=== PATIENT | female | born 1930 | race Caucasian/White ===

== ENCOUNTER 2016-06-11 16:02 | Inpatient (IN) | payer BC, OTHER ==
[2016-06-11 16:20] VITALS: BMI 20.7
--- NOTE | 2016-06-11 16:39 | PDOC ---
History of Present Illness - General History Source: Patient Exam Limitations: No Limitations - History of Present Illness Initial Comments: 06/11/16 17:37 The patient is an 85-year-old female living on her own, with a significant past medical history of sleep apnea, hyperglycemia, and glaucoma, who presents to the ED via EMS s/p fall today. Patient had called her close friend last night asking for prayers since she was feeling feverish and chills. Pts friend decided to visit the patient today at 2:30PM. As the pt was getting up to open the door she states that she felt a little dizzy and her legs felt heavy. She fell against her bookshelf but she denies any head trauma or loss of consciousness. Pts friend was talking to her through the door and the pt was able to unlock the door but the door chain was on. Pts friend had to call EMS to have the door chain cut and to be able to transport the patient to the ED for further evaluation. Upon arrival to the ED, the patients temp. was measured to be 102.4 degrees. Patient also reports that she is experiencing a flare up of cellulitis of her right leg. She did experience a similar episode with her left leg about a year ago that is now improved. She denies any cough, nausea, vomiting, diarrhea, abdominal pain, shortness of breath, or chest pain. Allergies: sulfa, soy, wheat, dairy products Social Hx: The patient denies any tobacco, alcohol, or drug use. PCP: Dr. Ernandez <Radha Kirk - Last Filed: 06/11/16 20:03> - General History Source: Patient Exam Limitations: No Limitations <Leah Stokes - Last Filed: 06/11/16 21:42> - General Chief Complaint: Injury Stated Complaint: FALL Time Seen by Provider: 06/11/16 16:30 Past History <Radha Kirk - Last Filed: 06/11/16 20:03> - Past Medical History Other medical history: hypoglycemia - Psycho/Social/Smoking Cessation Hx Suicidal Ideation: No Smoking History: Never smoked <Leah Stokes - Last Filed: 06/11/16 21:42> - Past Medical History Allergies/Adverse Reactions: Allergies Allergy/AdvReac Type Severity Reaction Status Date / Time Sulfa (Sulfonamide Allergy Intermediate Rash Verified 06/11/16 16:16 Antibiotics) soy AdvReac Verified 06/11/16 16:16 wheat AdvReac Verified 06/11/16 16:16 sulfa AdvReac Intermediate Uncoded 06/11/16 16:16 wheat AdvReac Mild Uncoded 06/11/16 16:16 dairy products AdvReac Uncoded 06/11/16 16:16 soy AdvReac Uncoded 06/11/16 16:16 Home Medications: Ambulatory Orders Bimatoprost [Lumigan] 1 drop IO DAILY 06/11/16 Review of Systems - Review of Systems Able to Perform ROS?: Yes Comments:: 06/11/16 17:37 GENERAL/CONSTITUTIONAL: No: weakness, loss of appetite. Yes: Fever, chills HEAD, EYES, EARS, NOSE AND THROAT: No: change in vision, ear pain, discharge, sore throat, throat swelling. CARDIOVASCULAR: No: chest pain, lightheadedness, palpitations, syncope RESPIRATORY: No: cough, shortness of breath, wheezing, hemoptysis, stridor. GASTROINTESTINAL: No: nausea, vomiting, abdominal cramping, diarrhea, rectal bleeding, constipation. GENITOURINARY: No: dysuria, hematuria, frequency, urgency, flank pain. MUSCULOSKELETAL: No: back pain, neck pain, joint pain, muscle swelling or pain. (+)Lower extremity heaviness SKIN AND BREASTS: No: pallor or easy bruising. Yes: cellulitis of right lower extremity NEUROLOGIC: No: headache, vertigo, paresthesias. Yes: dizziness ENDOCRINE: No: unexplained weight gain or loss HEMATOLOGIC/LYMPHATIC: No: anemia, easy bleeding, swelling nodes <Radha Kirk - Last Filed: 06/11/16 20:03> *Physical Exam - Vital Signs Last Vital Signs Temp Pulse Resp BP Pulse Ox 102.6 F H 89 18 102/44 92 L 06/11/16 16:17 06/11/16 16:17 06/11/16 16:17 06/11/16 16:17 06/11/16 16:17 - Physical Exam Comments: 06/11/16 17:39 GENERAL: The patient is in no acute distress. ANO x3 HEAD: Normal with no signs of trauma. EYES: PERRLA, EOMI, sclera anicteric, conjunctiva clear. ENT: Ears normal, nares patent, oropharynx clear without exudates. Moist mucous membranes. NECK: Normal range of motion, supple without lymphadenopathy, JVD, or masses. LUNGS: Breath sounds equal, clear to auscultation bilaterally. No wheezes, and no crackles. HEART:Regular rate and rhythm, normal S1 and S2 without murmur, rub or gallop. ABDOMEN: Soft, nontender, normoactive bowel sounds. No guarding, no rebound. EXTREMITIES: Normal range of motion, no edema. No clubbing or cyanosis. (+) Erythema, warmth and tenderness of the right lower extremity. NEUROLOGICAL: Cranial nerves II through XII grossly intact. Normal speech. No focal neurological deficits. MUSCULOSKELETAL: Back non-tender to palpation, no CVA tenderness SKIN: Warm, Dry, normal turgor. <Radha Kirk - Last Filed: 06/11/16 20:03> - Vital Signs Last Vital Signs Temp Pulse Resp BP Pulse Ox 102.6 F H 89 18 102/44 92 L 06/11/16 16:17 06/11/16 16:17 06/11/16 16:17 06/11/16 16:17 06/11/16 16:17 <Leah Stokes - Last Filed: 06/11/16 21:42> Heart Score/ECG Review #1 ECG reviewed & interpreted by me at: 21:42 General ECG Interpretation: Sinus Rhythm, Normal Rate, Normal Intervals, No acute ischemic changes <Leah Stokes - Last Filed: 06/11/16 21:42> ED Treatment Course - LABORATORY CBC & Chemistry Diagram: 06/11/16 17:12 06/11/16 17:12 - Medications Given in the ED: ED Medications Discontinued Medications Generic Name Dose Route Start Last Admin Trade Name Freq PRN Reason Stop Dose Admin Acetaminophen 975 mg 06/11/16 16:40 06/11/16 17:06 Tylenol - PO 06/11/16 16:41 975 mg ONCE ONE Administration <Radha Kirk - Last Filed: 06/11/16 20:03> - LABORATORY CBC & Chemistry Diagram: 06/11/16 17:12 06/11/16 17:12 <Leah Stokes - Last Filed: 06/11/16 21:42> Medical Decision Making - Medical Decision Making 06/11/16 20:03 Dr. Kaiser was paged and notified via phone service. <Radha Kirk - Last Filed: 06/11/16 20:03> - Medical Decision Making 06/11/16 16:39 I, Dr. Leah Stokes, attest that this document has been prepared under my direction and personally reviewed by me in its entirety. I further attest, that it accurately reflects all work, treatment, procedures and medical decision -making performed by me. 06/11/16 16:55 This is an 85 yo F with a history of lower extremity wound presenting to the ER s/p fall Briefly, the patient lives alone and was home all day, did not get out of bed Pt states this is because she was so fatigued and her leg felt heavy she called a friend to ask for prayer when that friend came to her house, the patient attempted to open the door When she walked to the door, she fell down prior to opening it She was too weak to get to the door Pt states she did not hit her head, no loc On examination Selected Entries 06/11/16 16:17 Temperature 102.6 F H Pulse Rate 89 Respiratory 18 Rate Blood Pressure 102/44 O2 Sat by Pulse 92 L Oximetry (%) RRR CTA but decreased breath sounds no abd tenderness to palpation RLE erythematous, warm, tender to palpation Achilles area no wound noted 06/11/16 17:22 06/11/16 18:11 Laboratory Tests 06/11/16 06/11/16 17:12 17:40 WBC 13.4 H Hgb 11.7 Hct 34.8 Plt Count 205 VBG pH 7.42 H POC VBG pCO2 39.9 L POC VBG pO2 31.1 06/11/16 18:24 Laboratory Tests 06/11/16 17:12 Sodium 136 Potassium 3.9 Chloride 100 Carbon Dioxide 25 Anion Gap 11 BUN 17 Creatinine 1.0 Random Glucose 121 H Creatine Kinase 527 H Troponin I 0.05 06/11/16 19:[address] brizuela Will admit to Med surg Will add on CRP, ESR Awaiting Head CT STILL Call placed to Radiology, they can take patient now 06/11/16 19:54 clinical impression: cellulitis, fever, sepsis 06/11/16 21:[address]: IMAGES: 66 EXAM DATE AND TIME: 2016-06-11 21:10:57.0 REASON FOR EXAM: Fall COMPARISON: None. FINDINGS: There is no intra or extra-axial hemorrhage or collection. No mass lesion or midline shift. There is mild cortical atrophy. The ventricles are not enlarged Normal piper-white matter differentiation. Low attenuation in the periventricular white matter compatible with chronic microvascular ischemic changes. The calvarium is intact. The visualized paranasal sinuses and mastoid air cells are clear. THIS DOCUMENT HAS BEEN ELECTRONICALLY SIGNED Dixon Fenton MD <Leah Stokes - Last Filed: 06/11/16 21:42> *DC/Admit/Observation/Transfer - Attestations Scribe Attestion: 06/11/16 17:4 Documentation prepared by Radha Kirk, acting as medical typist for Leah Stokes MD. <Radha Kirk - Last Filed: 06/11/16 20:03> - Discharge Dispostion Admit: Yes <Leah Stokes - Last Filed: 06/11/16 21:42> Diagnosis at time of Disposition: Cellulitis of leg without foot, right - Discharge Dispostion Condition at time of disposition: Stable - Referrals
[2016-06-11] MEDS ORDERED: ACETAMINOPHEN 325 MG TABLET (FP) PO ONE (16:40)
[2016-06-11] MEDS ORDERED: SODIUM CHLORIDE 1,000 ML IV STA (16:51)
[2016-06-11] MEDS ORDERED: VANCOMYCIN 1,000 MG in DEXTROSE 5%-WATER - 250 ML IVPB ONE (16:55)
[2016-06-11] MEDS ORDERED: ACETAMINOPHEN 325 MG TABLET (FP) ONE (17:00)
[2016-06-11] MEDS ORDERED: VANCOMYCIN 1 GRAM (PRE-DOCKED) 250 ML IVPB ONE (17:01)
[2016-06-11 17:44] LABS: VENOUS BLOOD GAS HCO3 25.3 meq/L (22-29); VENOUS PH 7.42 (7.31-7.41)
[2016-06-11 17:45] LABS: MCH 30.9 pg (25.7-33.7); MCHC 33.5 g/dl (32.0-36.0); MEAN CELL VOLUME 92.4 fl (80-96); PLATELET COUNT 205 K/MM3 (134-434); RDW 13.5 % (11.6-15.6); WHITE BLOOD COUNT 13.4 K/mm3 (4.0-10.0)
[2016-06-11 17:56] LABS: INR 1.36 (0.82-1.09)
[2016-06-11 17:59] LABS: ACTIVATED PTT 34.5 SECONDS (26.9-34.4)
[2016-06-11 18:12] LABS: ALBUMIN 3.2 g/dl (3.4-5.0); BILIRUBIN,TOTAL 0.3 mg/dL (0.2-1.0); CALCIUM 8.4 mg/dL (8.5-10.1); TOT PROT 6.5 g/dl (6.4-8.2)
[2016-06-11 18:15] LABS: TROPONIN I 0.05 ng/ml (0.00-0.05)
[2016-06-11 18:17] LABS: PLATELET ESTIMATE DECREASED (NORMAL)
[2016-06-11 19:37] LABS: URINE APPEARANCE CLEAR; URINE BILIRUBIN NEGATIVE (NEGATIVE); URINE BLOOD NEGATIVE (NEGATIVE); URINE COLOR YELLOW; URINE GLUCOSE (UA) NEGATIVE (NEGATIVE); URINE KETONE TRACE (NEGATIVE); URINE LEUK ESTERASE NEGATIVE (NEGATIVE); URINE NITRITE NEGATIVE (NEGATIVE); URINE UROBILINOGEN NEGATIVE E.U./dl (0.2-1.0)
[2016-06-11 19:39] LABS: URINE PROTEIN 2+ (NEGATIVE)
[2016-06-11 19:41] LABS: URINE HYALINE CAST 1 /lpf; URINE MUCUS RARE; URINE RBC 9 /hpf (0-3); URINE WBC 4 /hpf (3-5)
[2016-06-11] MEDS ORDERED: ONDANSETRON 4 MG/2 ML VIAL IVPB PRN (20:13)
[2016-06-11] MEDS ORDERED: oxyCODONE HCL 5 MG TABLET PO PRN (20:13)
--- NOTE | 2016-06-11 20:14 | PDOC ---
ED Treatment Course - LABORATORY CBC & Chemistry Diagram: 06/11/16 17:12 06/11/16 17:12 - ADDITIONAL ORDERS Additional order review: Laboratory Results 06/11/16 06/11/16 06/11/16 19:30 19:30 17:40 INR PTT (Actin FS) VBG pH 7.42 H POC VBG pCO2 39.9 L POC VBG pO2 31.1 Sodium Potassium Chloride Carbon Dioxide Anion Gap BUN Creatinine Creat Clearance w eGFR Random Glucose Lactic Acid 1.322 Calcium Total Bilirubin AST ALT Alkaline Phosphatase Creatine Kinase CK-MB (CK-2) Troponin I Total Protein Albumin Urine Color Yellow Urine Appearance Clear Urine pH 7.0 Ur Specific [place] 1.021 Urine Protein 2+ H Urine Glucose (UA) Negative Urine Ketones Trace H Urine Blood Negative Urine Nitrite Negative Urine Bilirubin Negative Urine Urobilinogen Negative Ur Leukocyte Esterase Negative Urine RBC 9 Urine WBC 4 Ur Epithelial Cells Rare Hyaline Casts 1 Urine Mucus Rare Blood Type Antibody Screen 06/11/16 06/11/16 06/11/16 17:12 17:12 17:12 INR PTT (Actin FS) VBG pH POC VBG pCO2 POC VBG pO2 Sodium 136 Potassium 3.9 Chloride 100 Carbon Dioxide 25 Anion Gap 11 BUN 17 Creatinine 1.0 Creat Clearance w eGFR 52.69 Random Glucose 121 H Lactic Acid 2.012 H* Calcium 8.4 L Total Bilirubin 0.3 AST 44 H ALT 32 Alkaline Phosphatase 41 L Creatine Kinase 527 H CK-MB (CK-2) 3.057 Troponin I 0.05 Total Protein 6.5 Albumin 3.2 L Urine Color Urine Appearance Urine pH Ur Specific [place] Urine Protein Urine Glucose (UA) Urine Ketones Urine Blood Urine Nitrite Urine Bilirubin Urine Urobilinogen Ur Leukocyte Esterase Urine RBC Urine WBC Ur Epithelial Cells Hyaline Casts Urine Mucus Blood Type A NEGATIVE Antibody Screen Negative 06/11/16 17:12 INR 1.36 H PTT (Actin FS) 34.5 H VBG pH POC VBG pCO2 POC VBG pO2 Sodium Potassium Chloride Carbon Dioxide Anion Gap BUN Creatinine Creat Clearance w eGFR Random Glucose Lactic Acid Calcium Total Bilirubin AST ALT Alkaline Phosphatase Creatine Kinase CK-MB (CK-2) Troponin I Total Protein Albumin Urine Color Urine Appearance Urine pH Ur Specific [place] Urine Protein Urine Glucose (UA) Urine Ketones Urine Blood Urine Nitrite Urine Bilirubin Urine Urobilinogen Ur Leukocyte Esterase Urine RBC Urine WBC Ur Epithelial Cells Hyaline Casts Urine Mucus Blood Type Antibody Screen 06/11/16 18:27 Influenza Types A,B Antigen (AARON) - Final Nasopharyngeal Swab - Final 06/11/16 17:12 RBC 3.77 MCV 92.4 MCHC 33.5 RDW 13.5 MPV 7.0 L Neutrophils % 75.0 Lymphocytes % 6.0 L Monocytes % 6.0 - RADIOLOGY Radiology Studies Ordered: Category Date Time Status HEAD CT WITHOUT CONTRAST [CT] Stat CT Scan 06/11/16 16:51 Ordered CHEST X-RAY PORTABLE* [RAD] Stat Radiology 06/11/16 16:39 Taken LEG TIB/FIB-RIGHT [RAD] Stat Radiology 06/11/16 16:41 Ordered - Medications Given in the ED: ED Medications Discontinued Medications Generic Name Dose Route Start Last Admin Trade Name Freq PRN Reason Stop Dose Admin Acetaminophen 975 mg 06/11/16 16:40 06/11/16 17:06 Tylenol - PO 06/11/16 16:41 975 mg ONCE ONE Administration Sodium Chloride 1,000 mls @ 1,000 mls/hr 06/11/16 16:51 06/11/16 18:00 Normal Saline - IV 06/11/16 17:50 1,000 mls/hr ASDIR STA Administration Vancomycin HCl 1,000 mg/ 250 mls @ 250 mls/hr 06/11/16 16:55 06/11/16 18:00 Dextrose IVPB 06/11/16 17:54 250 mls/hr ONCE ONE Administration *DC/Admit/Observation/Transfer Diagnosis at time of Disposition: Cellulitis of leg without foot, right - Discharge Dispostion Condition at time of disposition: Stable Admit: Yes - Referrals Referrals: Teo Ernandez MD [Primary Care Provider] - - Patient Instructions - Post Discharge Activity
[2016-06-12] MEDS: DOCUSATE SODIUM 100 MG CAPSULE (FP) PO SCH ×3 (00:23→22:09)
[2016-06-12] MEDS: ACETAMINOPHEN 325 MG TABLET (FP) PO PRN ×2 (00:57→17:57)
[2016-06-12] MEDS ORDERED: PNEUMOC 13-VAL CONJ-DIP CRM/PF 0.5 ML DISP.SYRIN IM ONE (06:48)
[2016-06-12 07:43] LABS: BASOPHIL 0.6 % (0-2.0); MCH 31.3 pg (25.7-33.7); MCHC 34.1 g/dl (32.0-36.0); PLATELET COUNT 168 K/MM3 (134-434); RDW 13.7 % (11.6-15.6); WHITE BLOOD COUNT 9.9 K/mm3 (4.0-10.0)
[2016-06-12 08:29] LABS: CREATININE 0.9 mg/dL (0.55-1.02); MAGNESIUM 2.1 mg/dL (1.8-2.4); PHOSPHOROUS 2.6 mg/dL (2.5-4.9)
--- NOTE | 2016-06-12 10:46 | HP ---
Admitting History and Physical - Primary Care Physician PCP: Teo Ernandez - Admission Chief Complaint: I felt weak History of Present Illness: Ms Wells is a very pleasant 85 year old female who presents after having a fall. She says that 2-3 days ago she began to have shaking chills. She did not feel feverish, but she was shaking. She also began to notice she was significantly weaker as well. She says she was able to walk around but was not able to do as much and had to rest more frequently. She denies fevers, lightheadedness, dizziness, passing out, chest pain, shortness of breath, nausea , vomiting, abdominal pain, diarrhea, constipation, pain or difficulty urinating , redness, or edema. She says her appetite was decreased but attributed it more to her "many food allergies". She was getting so weak she called her friend to check on her. When her friend came over she was walking to the door and accidentally tripped. She did not hit her head or have any trauma. However she fell and was unable to get out off the floor. She was brought in for further evaluation. History Source: Patient Limitations to Obtaining History: No Limitations - Past Medical History Additional Past Medical History: glaucoma - Past Surgical History Past Surgical History: Yes: None - Smoking History Smoking history: Never smoked - Alcohol/Substance Use Hx Alcohol Use: No History of Substance Use: reports: None - Social History Usual Living Arrangement: Yes: Alone ADL: Independent History of Recent Travel: No Home Medications - Allergies Allergies/Adverse Reactions: Allergies Allergy/AdvReac Type Severity Reaction Status Date / Time Sulfa (Sulfonamide Allergy Intermediate Rash Verified 06/11/16 16:16 Antibiotics) soy AdvReac Verified 06/11/16 16:16 wheat AdvReac Verified 06/11/16 16:16 sulfa AdvReac Intermediate Uncoded 06/11/16 16:16 wheat AdvReac Mild Uncoded 06/11/16 16:16 dairy products AdvReac Uncoded 06/11/16 16:16 soy AdvReac Uncoded 06/11/16 16:16 - Home Medications Home Medications: Ambulatory Orders Bimatoprost [Lumigan] 1 drop OU HS 06/11/16 Family Disease History - Family Disease History Family Disease History: Diabetes: Father Review of Systems Findings/Remarks: Full review of systems obtained, as per HPI and otherwise negative Physical Examination Vital Signs: Vital Signs Temperature 99 F 06/12/16 06:09 Pulse Rate 72 06/12/16 06:09 Respiratory Rate 18 06/12/16 06:09 Blood Pressure 106/48 06/12/16 06:09 O2 Sat by Pulse Oximetry (%) 96 06/11/16 23:09 Constitutional: Yes: Well Nourished, No Distress, Calm Eyes: Yes: Conjunctiva Clear, EOM Intact HENT: Yes: Atraumatic, Normocephalic Cardiovascular: Yes: Regular Rate and Rhythm. No: Gallop, Murmur, Rub Respiratory: Yes: Regular, CTA Bilaterally. No: Rales, Rhonchi, Wheezes Gastrointestinal: Yes: Normal Bowel Sounds, Soft. No: Distention, Tenderness Extremities: Yes: Erythema (RLE) Edema: No Labs: CBC, BMP 06/12/16 06:15 06/12/16 06:15 Imaging - Results Chest X-ray: Report Reviewed, Image Reviewed Cat Scan: Report Reviewed Problem List - Problems (1) Sepsis Assessment/Plan: -patient with positive blood cultures -also with cellulitis, unsure if this is the source -given vancomycin yesterday, will continue today -considering blood cultures positive, may also be gram negatives -case d/w Dr Hurtado who will see in consultation Code(s): A41.9 - SEPSIS, UNSPECIFIED ORGANISM (2) Cellulitis of leg without foot, right Assessment/Plan: -continue vancomycin Code(s): L03.115 - CELLULITIS OF RIGHT LOWER LIMB
[2016-06-12] MEDS ORDERED: VANCOMYCIN 1 GRAM (PRE-DOCKED) 250 ML IVPB ONE (11:00)
[2016-06-12] MEDS: LACTOBACILLUS ACIDOPHILUS 1 EACH TAB (FP) PO SCH (11:15)
[2016-06-12] MEDS: ENOXAPARIN NA (PORCINE) 40 MG/0.4 ML DISP.SYRIN SQ SCH (11:16)
[2016-06-12] MEDS: POLYETHYLENE GLYCOL 3350 119 GM BTL PO SCH (11:16)
[2016-06-12] MEDS: oxyCODONE HCL 5 MG TABLET PO PRN (13:43)
--- NOTE | 2016-06-12 14:09 | CONSULT ---
Consult Consult Specialty:: infectious diseases Referred by:: Dr Calles Reason for Consultation:: sepsis,cellulitis of the right leg - History of Present Illness Chief Complaint: pain and swelling of the leg rt History of Present Illness: 85-year-old female living on her own, with a significant past medical history of sleep apnea, hyperglycemia, and glaucoma, who presents to the ED via EMS s/p fall today. Patient had called her close friend last night asking for prayers since she was feeling feverish and chills. Pts friend decided to visit the patient today at 2:30PM. As the pt was getting up to open the door she states that she felt a little dizzy and her legs felt heavy. She fell against her bookshelf but she denies any head trauma or loss of consciousness. Pts friend was talking to her through the door and the pt was able to unlock the door but the door chain was on. Pts friend had to call EMS to have the door chain cut and to be able to transport the patient to the ED for further evaluation. Further history according to the patient she mentioned swelling around the ankle of the rt couple of days back and the skin broke and she had clear drainage of fluid from the wound,following that the patient noticed her leg started to become red and painful and the erythema went on increasing. since the patient came to the er patients erythema has increased and now we have a put a yuliana on the same. patient was febrile in the emergency room and was given abx currently her main complaint is of pain in the leg and erythema of the leg she denies any other issues also she has bilateral club feet on workup bacteremia was found - History Source History Provided By: Patient, Friend Limitations to Obtaining History: No Limitations - Alcohol/Substance Use Hx Alcohol Use: No - Smoking History Smoking history: Never smoked Home Medications - Allergies Allergies/Adverse Reactions: Allergies Allergy/AdvReac Type Severity Reaction Status Date / Time Sulfa (Sulfonamide Allergy Intermediate Rash Verified 06/11/16 16:16 Antibiotics) soy AdvReac Verified 06/11/16 16:16 wheat AdvReac Verified 06/11/16 16:16 sulfa AdvReac Intermediate Uncoded 06/11/16 16:16 wheat AdvReac Mild Uncoded 06/11/16 16:16 dairy products AdvReac Uncoded 06/11/16 16:16 soy AdvReac Uncoded 06/11/16 16:16 - Home Medications Home Medications: Ambulatory Orders Bimatoprost [Lumigan] 1 drop OU HS 06/11/16 Review of Systems - Review of Systems Constitutional: reports: Fever, Lethargy Eyes: reports: No Symptoms HENT: reports: No Symptoms Neck: reports: No Symptoms Cardiovascular: reports: No Symptoms Respiratory: reports: No Symptoms Gastrointestinal: reports: No Symptoms Genitourinary: reports: No Symptoms Musculoskeletal: reports: Muscle Pain, Other Integumentary: reports: Change in Color, Erythema Neurological: reports: No Symptoms Endocrine: reports: No Symptoms Psychiatric: reports: No Symptoms Physical Exam Vital Signs: Vital Signs Temperature 98.9 F 06/12/16 14:05 Pulse Rate 90 06/12/16 14:05 Respiratory Rate 18 06/12/16 14:05 Blood Pressure 125/64 06/12/16 14:05 O2 Sat by Pulse Oximetry (%) 96 06/11/16 23:09 Constitutional: Yes: Calm, Mild Distress, Thin Eyes: Yes: Conjunctiva Clear HENT: Yes: Atraumatic, Normocephalic Neck: Yes: Supple, Trachea Midline Cardiovascular: Yes: Regular Rate and Rhythm Respiratory: Yes: Regular, CTA Bilaterally Gastrointestinal: Yes: Normal Bowel Sounds, Soft Musculoskeletal: Yes: Muscle Pain, Other Extremities: Yes: Erythema, Other (club feet) Integumentary: Yes: Erythema, Other Wound/Incision: Yes: Clean/Dry Neurological: Yes: Alert, Oriented Psychiatric: Yes: Alert Labs: CBC, BMP 06/12/16 06:15 06/12/16 06:15 Imaging - Results Chest X-ray: Report Reviewed, Image Reviewed X-ray: Report Reviewed, Image Reviewed Cat Scan: Report Reviewed, Image Reviewed Assessment/Plan this patient with cellulitis of the legs and club feet, I can see the entry point for the infection patient is also has bacteremia and i think it is the leg i ahve suspicion that this organism might be strep Problem List - Problems (1) Sepsis Code(s): A41.9 - SEPSIS, UNSPECIFIED ORGANISM (2) Cellulitis of leg without foot, right Code(s): L03.115 - CELLULITIS OF RIGHT LOWER LIMB bacteremia gram positive plan continue current abx await for identification of the organism will change abx accordingly hydration repeat blood cx
[2016-06-12] MEDS ORDERED: PT OWN MED DRAWER 7, Y5N ONE (16:54)
[2016-06-12] MEDS: PIPERACILLIN/TAZOB 2.25 GM 50 ML IVPB SCH (17:57)
[2016-06-12] MEDS ORDERED: LATANOPROST 0.005% OPHTH SOLN 2.5ML BOTTLE OU SCH (22:00)
[2016-06-12] MEDS: LUMIGAN 0.01% OU SCH (22:09)
[2016-06-12] MEDS: OPTH OU SCH (22:09)
[2016-06-13] MEDS: PIPERACILLIN/TAZOB 2.25 GM 50 ML IVPB SCH ×3 (02:11→17:59)
[2016-06-13 07:49] LABS: BASOPHIL 0.5 % (0-2.0); EOSINOPHIL 0.5 % (0-4.5); MCH 31.3 pg (25.7-33.7); MCHC 33.8 g/dl (32.0-36.0); MEAN CELL VOLUME 92.5 fl (80-96); MEAN PLT VOLUME 7.4 fl (7.5-11.1); NEUTROPHILS 75.8 % (42.8-82.8); PLATELET COUNT 167 K/MM3 (134-434); RDW 13.5 % (11.6-15.6); WHITE BLOOD COUNT 7.2 K/mm3 (4.0-10.0)
[2016-06-13 08:22] LABS: CREATININE 0.8 mg/dL (0.55-1.02); PHOSPHOROUS 2.3 mg/dL (2.5-4.9)
[2016-06-13] MEDS ORDERED: VANCOMYCIN 1 GRAM (PRE-DOCKED) 250 ML IVPB SCH (10:00)
--- NOTE | 2016-06-13 10:12 | PN ---
Progress Note, Physician Chief Complaint: Ms Wells is complaining of pain in her R foot. No cp, sob, n/v. - Current Medication List Current Medications: Active Medications Acetaminophen (Tylenol -) 650 mg PO Q4H PRN PRN Reason: FEVER OR PAIN Last Admin: 06/12/16 17:57 Dose: 650 mg Docusate Sodium (Colace -) 100 mg PO BID [facility] Last Admin: 06/12/16 22:09 Dose: 100 mg Enoxaparin Sodium (Lovenox -) 40 mg SQ DAILY [facility] Last Admin: 06/12/16 11:16 Dose: 40 mg Vancomycin HCl (Vancomycin (Pre-Docked)) 250 mls @ 250 mls/hr IVPB DAILY DI Piperacillin Sod/Tazobactam Sod (Zosyn 2.25gm Ivpb (Pre-Docked)) 50 mls @ 100 mls/hr IVPB Q8H-IV DI PRN Reason: Protocol Last Admin: 06/13/16 02:11 Dose: 100 mls/hr Lactobacillus Acidophilus (Bacid -) 1 tab PO DAILY [facility] Last Admin: 06/12/16 11:15 Dose: 1 tab Non-Formulary Med ( Lumigan [Bimatoprost ] 0.01% Opth Isabelle) 1 each OU HS [facility] Last Admin: 06/12/16 22:09 Dose: 1 each Ondansetron HCl (Zofran Injection) 4 mg IVPB Q6H PRN PRN Reason: NAUSEA Oxycodone HCl (Roxicodone -) 2.5 mg PO Q6H PRN PRN Reason: PAIN Last Admin: 06/12/16 13:43 Dose: 2.5 mg Polyethylene Glycol (Miralax (For Daily Use) -) 17 gm PO DAILY [facility] Last Admin: 06/12/16 11:16 Dose: 17 grams - Objective Vital Signs: Vital Signs Temperature 99.8 F H 06/13/16 06:00 Pulse Rate 74 06/13/16 06:00 Respiratory Rate 18 06/13/16 06:00 Blood Pressure 117/48 06/13/16 06:00 O2 Sat by Pulse Oximetry (%) 96 06/12/16 21:00 Constitutional: Yes: Well Nourished, No Distress, Calm Cardiovascular: Yes: Regular Rate and Rhythm. No: Gallop, Murmur, Rub Respiratory: Yes: Regular, CTA Bilaterally. No: Rales, Rhonchi, Wheezes Gastrointestinal: Yes: Normal Bowel Sounds, Soft. No: Distention, Tenderness Extremities: Yes: Erythema (improving) Edema: No Labs: CBC, BMP 06/13/16 06:15 06/13/16 06:15 INR, PTT INR 1.36 (0.82-1.09) H 06/11/16 17:12 Problem List - Problems (1) Sepsis Code(s): A41.9 - SEPSIS, UNSPECIFIED ORGANISM (2) Cellulitis of leg without foot, right Code(s): L03.115 - CELLULITIS OF RIGHT LOWER LIMB Assessment/Plan (1) Sepsis Assessment/Plan: -blood cultures growing streptococcus species -both vancomycin and zosyn covering this -patient feels improved -ID consulted and following, continue antibiotics currently -will d/w Dr Hurtado about further testing needed Code(s): A41.9 - SEPSIS, UNSPECIFIED ORGANISM (2) Cellulitis of leg without foot, right Assessment/Plan: -continue vancomycin and zosyn Code(s): L03.115 - CELLULITIS OF RIGHT LOWER LIMB
[2016-06-13] MEDS: POLYETHYLENE GLYCOL 3350 119 GM BTL PO SCH (11:23)
[2016-06-13] MEDS: DOCUSATE SODIUM 100 MG CAPSULE (FP) PO SCH ×2 (11:23→21:23)
[2016-06-13] MEDS: LACTOBACILLUS ACIDOPHILUS 1 EACH TAB (FP) PO SCH (11:23)
[2016-06-13] MEDS: ENOXAPARIN NA (PORCINE) 40 MG/0.4 ML DISP.SYRIN SQ SCH (11:23)
[2016-06-13] MEDS: oxyCODONE HCL 5 MG TABLET PO PRN (14:58)
--- NOTE | 2016-06-13 15:18 | PN ---
Progress Note, Physician History of Present Illness: patient stable better c/o pain in the leg erythema improving - Current Medication List Current Medications: Active Medications Acetaminophen (Tylenol -) 650 mg PO Q4H PRN PRN Reason: FEVER OR PAIN Last Admin: 06/12/16 17:57 Dose: 650 mg Docusate Sodium (Colace -) 100 mg PO BID [facility] Last Admin: 06/13/16 11:23 Dose: 100 mg Enoxaparin Sodium (Lovenox -) 40 mg SQ DAILY [facility] Last Admin: 06/13/16 11:23 Dose: 40 mg Piperacillin Sod/Tazobactam Sod (Zosyn 2.25gm Ivpb (Pre-Docked)) 50 mls @ 100 mls/hr IVPB Q8H-IV DI PRN Reason: Protocol Last Admin: 06/13/16 11:23 Dose: 100 mls/hr Lactobacillus Acidophilus (Bacid -) 1 tab PO DAILY [facility] Last Admin: 06/13/16 11:23 Dose: 1 tab Non-Formulary Med ( Lumigan [Bimatoprost ] 0.01% Opth Isabelle) 1 each OU HS [facility] Last Admin: 06/12/16 22:09 Dose: 1 each Ondansetron HCl (Zofran Injection) 4 mg IVPB Q6H PRN PRN Reason: NAUSEA Oxycodone HCl (Roxicodone -) 2.5 mg PO Q6H PRN PRN Reason: PAIN Last Admin: 06/13/16 14:58 Dose: 2.5 mg Polyethylene Glycol (Miralax (For Daily Use) -) 17 gm PO DAILY [facility] Last Admin: 06/13/16 11:23 Dose: 17 grams - Objective Vital Signs: Vital Signs Temperature 97.9 F 06/13/16 14:00 Pulse Rate 78 06/13/16 14:00 Respiratory Rate 20 06/13/16 14:00 Blood Pressure 121/61 06/13/16 14:00 O2 Sat by Pulse Oximetry (%) 95 06/13/16 09:00 Constitutional: Yes: No Distress, Calm Cardiovascular: Yes: Regular Rate and Rhythm Respiratory: Yes: Regular, CTA Bilaterally Gastrointestinal: Yes: Normal Bowel Sounds, Soft Extremities: Yes: Erythema (improving) Integumentary: Yes: Erythema (decreases) Neurological: Yes: Alert, Oriented Psychiatric: Yes: Alert Labs: CBC, BMP 06/13/16 06:15 06/13/16 06:15 INR, PTT INR 1.36 (0.82-1.09) H 06/11/16 17:12 Assessment/Plan 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
--- NOTE | 2016-06-13 16:15 | EKG ---
Test Reason : Blood Pressure : / mmHG Vent. Rate : 075 BPM Atrial Rate : 075 BPM P-R Int : 162 ms QRS Dur : 084 ms QT Int : 370 ms P-R-T Axes : 047 -14 035 degrees QTc Int : 413 ms NORMAL SINUS RHYTHM NORMAL ECG NO PREVIOUS ECGS AVAILABLE Confirmed by MARIZA HODGE MD ([id number]) on 06/13/2016 4:15:35 PM Referred By: Confirmed By:MARIZA HODGE MD
[2016-06-13] MEDS: ACETAMINOPHEN 325 MG TABLET (FP) PO PRN (21:19)
[2016-06-13] MEDS: OPTH OU SCH (21:23)
[2016-06-13] MEDS: LUMIGAN 0.01% OU SCH (21:23)
[2016-06-14] MEDS: PIPERACILLIN/TAZOB 2.25 GM 50 ML IVPB SCH ×3 (02:13→17:37)
[2016-06-14 07:38] LABS: BASOPHIL 0.9 % (0-2.0); EOSINOPHIL 1.3 % (0-4.5); MCH 31.2 pg (25.7-33.7); MCHC 33.8 g/dl (32.0-36.0); MEAN CELL VOLUME 92.3 fl (80-96); MEAN PLT VOLUME 7.1 fl (7.5-11.1); NEUTROPHILS 58.9 % (42.8-82.8); PLATELET COUNT 176 K/MM3 (134-434); RDW 13.7 % (11.6-15.6); WHITE BLOOD COUNT 5.2 K/mm3 (4.0-10.0)
[2016-06-14 08:04] LABS: CALCIUM 8.1 mg/dL (8.5-10.1); CREATININE 0.7 mg/dL (0.55-1.02); MAGNESIUM 2.1 mg/dL (1.8-2.4)
--- NOTE | 2016-06-14 08:35 | PN ---
Progress Note, Physician - Current Medication List Current Medications: Active Medications Acetaminophen (Tylenol -) 650 mg PO Q4H PRN PRN Reason: FEVER OR PAIN Last Admin: 06/13/16 21:19 Dose: 650 mg Docusate Sodium (Colace -) 100 mg PO BID [facility] Last Admin: 06/13/16 21:23 Dose: Not Given Enoxaparin Sodium (Lovenox -) 40 mg SQ DAILY [facility] Last Admin: 06/13/16 11:23 Dose: 40 mg Piperacillin Sod/Tazobactam Sod (Zosyn 2.25gm Ivpb (Pre-Docked)) 50 mls @ 100 mls/hr IVPB Q8H-IV DI PRN Reason: Protocol Last Admin: 06/14/16 02:13 Dose: 100 mls/hr Lactobacillus Acidophilus (Bacid -) 1 tab PO DAILY [facility] Last Admin: 06/13/16 11:23 Dose: 1 tab Non-Formulary Med ( Lumigan [Bimatoprost ] 0.01% Opth [facility]le) 1 each OU HS [facility] Last Admin: 06/13/16 21:23 Dose: 1 each Ondansetron HCl (Zofran Injection) 4 mg IVPB Q6H PRN PRN Reason: NAUSEA Oxycodone HCl (Roxicodone -) 2.5 mg PO Q6H PRN PRN Reason: PAIN Last Admin: 06/13/16 14:58 Dose: 2.5 mg Polyethylene Glycol (Miralax (For Daily Use) -) 17 gm PO DAILY [facility] Last Admin: 06/13/16 11:23 Dose: 17 grams - Objective Vital Signs: Vital Signs Temperature 99 F 06/14/16 06:39 Pulse Rate 73 06/14/16 06:39 Respiratory Rate 16 06/14/16 06:39 Blood Pressure 106/50 06/14/16 06:39 O2 Sat by Pulse Oximetry (%) 95 06/13/16 21:00 Constitutional: Yes: Well Nourished, No Distress, Calm Eyes: Yes: WNL, Conjunctiva Clear HENT: Yes: WNL, Atraumatic, Normocephalic Neck: Yes: WNL, Supple, Trachea Midline Cardiovascular: Yes: WNL, Regular Rate and Rhythm Respiratory: Yes: WNL, Regular, CTA Bilaterally Gastrointestinal: Yes: WNL, Normal Bowel Sounds Musculoskeletal: Yes: WNL Extremities: Yes: Erythema (right lower leg) Edema: No Integumentary: Yes: WNL Neurological: Yes: WNL, Alert, Oriented ...Motor Strength: WNL Psychiatric: Yes: WNL Labs: CBC, BMP 06/14/16 07:05 06/14/16 07:05 INR, PTT INR 1.36 (0.82-1.09) H 06/11/16 17:12 Impression/Plan Impression/Plan: 85 year old woman admitted for sepsis due to cellulitis of lower extremity Cellulitis -area of erythema on right lower leg appears to be improving based upon line of demarcation with pen prior to this examination -has strep in 2/2 blood cultures -currently on zosyn -send for 2D echo to rule out endocarditis -follow up with ID attending Left ear pain -symptoms started overnight -pt received total of 3 doses vancomycin prior to ear pain -though low suspicion for vancomycin induced ototoxicity still have to consider -follow up ENT consultation Visit type - Emergency Visit Emergency Visit: Yes ED Registration Date: 06/11/16 Care time: The patient presented to the Emergency Department on the above date and was hospitalized for further evaluation of their emergent condition. - New Patient This patient is new to me today: Yes Date on this admission: 06/14/16 - Critical Care Critical Care patient: No
[2016-06-14] MEDS: DOCUSATE SODIUM 100 MG CAPSULE (FP) PO SCH ×2 (10:14→22:41)
[2016-06-14] MEDS: LACTOBACILLUS ACIDOPHILUS 1 EACH TAB (FP) PO SCH (10:14)
[2016-06-14] MEDS: ENOXAPARIN NA (PORCINE) 40 MG/0.4 ML DISP.SYRIN SQ SCH (10:15)
[2016-06-14] MEDS: POLYETHYLENE GLYCOL 3350 119 GM BTL PO SCH (10:15)
--- NOTE | 2016-06-14 13:19 | PN ---
Progress Note, Physician History of Present Illness: pateint stable no events some nose bleed according to nursing staff nothing currently patient getting an echo - Current Medication List Current Medications: Active Medications Acetaminophen (Tylenol -) 650 mg PO Q4H PRN PRN Reason: FEVER OR PAIN Last Admin: 06/13/16 21:19 Dose: 650 mg Docusate Sodium (Colace -) 100 mg PO BID [facility] Last Admin: 06/14/16 10:14 Dose: 100 mg Enoxaparin Sodium (Lovenox -) 40 mg SQ DAILY [facility] Last Admin: 06/14/16 10:15 Dose: Not Given Piperacillin Sod/Tazobactam Sod (Zosyn 2.25gm Ivpb (Pre-Docked)) 50 mls @ 100 mls/hr IVPB Q8H-IV DI PRN Reason: Protocol Last Admin: 06/14/16 10:15 Dose: 100 mls/hr Lactobacillus Acidophilus (Bacid -) 1 tab PO DAILY [facility] Last Admin: 06/14/16 10:14 Dose: 1 tab Non-Formulary Med ( Lumigan [Bimatoprost ] 0.01% Opth [facility]le) 1 each OU HS [facility] Last Admin: 06/13/16 21:23 Dose: 1 each Ondansetron HCl (Zofran Injection) 4 mg IVPB Q6H PRN PRN Reason: NAUSEA Oxycodone HCl (Roxicodone -) 2.5 mg PO Q6H PRN PRN Reason: PAIN Last Admin: 06/13/16 14:58 Dose: 2.5 mg Polyethylene Glycol (Miralax (For Daily Use) -) 17 gm PO DAILY [facility] Last Admin: 06/14/16 10:15 Dose: 17 grams - Objective Vital Signs: Vital Signs Temperature 99.7 F H 06/14/16 09:00 Pulse Rate 84 06/14/16 09:00 Respiratory Rate 18 06/14/16 09:00 Blood Pressure 123/63 06/14/16 09:00 O2 Sat by Pulse Oximetry (%) 95 06/14/16 09:00 Constitutional: Yes: No Distress, Calm Cardiovascular: Yes: Regular Rate and Rhythm Respiratory: Yes: Regular, CTA Bilaterally Musculoskeletal: Yes: WNL Extremities: Yes: Erythema, Other (tenderness) Integumentary: Yes: Erythema, Other Neurological: Yes: Alert, Oriented Psychiatric: Yes: Alert, Oriented Labs: CBC, BMP 06/14/16 07:05 06/14/16 07:05 INR, PTT INR 1.36 (0.82-1.09) H 06/11/16 17:12 Assessment/Plan 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
[2016-06-14] MEDS: oxyCODONE HCL 5 MG TABLET PO PRN (15:45)
[2016-06-14] MEDS: ACETAMINOPHEN 325 MG TABLET (FP) PO PRN (15:46)
[2016-06-14] MEDS: CLINDAMYCIN HCL 150 MG CAPSULE (FP) PO SCH (17:37)
[2016-06-14] MEDS: OPTH OU SCH (22:45)
[2016-06-14] MEDS: LUMIGAN 0.01% OU SCH (22:45)
[2016-06-15] MEDS: CLINDAMYCIN HCL 150 MG CAPSULE (FP) PO SCH ×3 (00:49→11:24)
[2016-06-15] MEDS: PIPERACILLIN/TAZOB 2.25 GM 50 ML IVPB SCH ×2 (01:22→11:24)
[2016-06-15] MEDS: ACETAMINOPHEN 325 MG TABLET (FP) PO PRN ×2 (06:22→16:58)
[2016-06-15 07:36] LABS: BASOPHIL 0.7 % (0-2.0); EOSINOPHIL 1.3 % (0-4.5); MCH 31.4 pg (25.7-33.7); MCHC 34.2 g/dl (32.0-36.0); MEAN CELL VOLUME 91.8 fl (80-96); MEAN PLT VOLUME 7.3 fl (7.5-11.1); NEUTROPHILS 60.9 % (42.8-82.8); PLATELET COUNT 199 K/MM3 (134-434); RDW 13.3 % (11.6-15.6); WHITE BLOOD COUNT 6.4 K/mm3 (4.0-10.0)
[2016-06-15 08:29] LABS: CALCIUM 8.2 mg/dL (8.5-10.1); CREATININE 0.8 mg/dL (0.55-1.02)
[2016-06-15] MEDS: DOCUSATE SODIUM 100 MG CAPSULE (FP) PO SCH ×2 (11:24→22:50)
[2016-06-15] MEDS: LACTOBACILLUS ACIDOPHILUS 1 EACH TAB (FP) PO SCH (11:24)
[2016-06-15] MEDS: ENOXAPARIN NA (PORCINE) 40 MG/0.4 ML DISP.SYRIN SQ SCH ×2 (11:24→11:36)
[2016-06-15] MEDS: POLYETHYLENE GLYCOL 3350 119 GM BTL PO SCH (11:25)
--- NOTE | 2016-06-15 13:52 | PN ---
Progress Note, Physician Chief Complaint: Ms Wells says she is having heartburn today. Also says her right leg is more red and painful, states it happened after she ate. No cp, sob, n/v. - Current Medication List Current Medications: Active Medications Acetaminophen (Tylenol -) 650 mg PO Q4H PRN PRN Reason: FEVER OR PAIN Last Admin: 06/15/16 06:22 Dose: 650 mg Clindamycin HCl (Cleocin -) 300 mg PO Q6HPO [facility] Last Admin: 06/15/16 11:24 Dose: 300 mg Docusate Sodium (Colace -) 100 mg PO BID [facility] Last Admin: 06/15/16 11:24 Dose: 100 mg Enoxaparin Sodium (Lovenox -) 40 mg SQ DAILY [facility] Last Admin: 06/15/16 11:36 Dose: Not Given Piperacillin Sod/Tazobactam Sod (Zosyn 2.25gm Ivpb (Pre-Docked)) 50 mls @ 100 mls/hr IVPB Q8H-IV DI PRN Reason: Protocol Last Admin: 06/15/16 11:24 Dose: 100 mls/hr Lactobacillus Acidophilus (Bacid -) 1 tab PO DAILY [facility] Last Admin: 06/15/16 11:24 Dose: 1 tab Non-Formulary Med ( Lumigan [Bimatoprost ] 0.01% Opth [facility]) 1 each OU HS [facility] Last Admin: 06/14/16 22:45 Dose: 1 each Ondansetron HCl (Zofran Injection) 4 mg IVPB Q6H PRN PRN Reason: NAUSEA Polyethylene Glycol (Miralax (For Daily Use) -) 17 gm PO DAILY [facility] Last Admin: 06/15/16 11:25 Dose: 17 grams - Objective Vital Signs: Vital Signs Temperature 99.7 F H 06/15/16 06:00 Pulse Rate 78 06/15/16 06:00 Respiratory Rate 18 06/15/16 06:00 Blood Pressure 103/50 06/15/16 06:00 O2 Sat by Pulse Oximetry (%) 98 06/15/16 09:00 Constitutional: Yes: Well Nourished, No Distress, Calm Cardiovascular: Yes: Regular Rate and Rhythm. No: Gallop, Murmur, Rub Respiratory: Yes: Regular, CTA Bilaterally. No: Rales, Rhonchi, Wheezes Gastrointestinal: Yes: Normal Bowel Sounds, Soft. No: Distention, Tenderness Extremities: Yes: Erythema (RLE, much increased today) Edema: No Labs: CBC, BMP 06/15/16 06:10 06/15/16 06:10 INR, PTT INR 1.36 (0.82-1.09) H 06/11/16 17:12 Problem List - Problems (1) Sepsis Code(s): A41.9 - SEPSIS, UNSPECIFIED ORGANISM (2) Cellulitis of leg without foot, right Code(s): L03.115 - CELLULITIS OF RIGHT LOWER LIMB Assessment/Plan (1) Sepsis Assessment/Plan: -blood cultures growing GBS -sensitive to penicillins, continue zosyn -ECHO reviewed and negative for vegetation -repeat blood cultures sent Code(s): A41.9 - SEPSIS, UNSPECIFIED ORGANISM (2) Cellulitis of leg without foot, right Assessment/Plan: -much more erythematous today -ID following -continue zosyn and clindamycin -may need clindamycin changed Code(s): L03.115 - CELLULITIS OF RIGHT LOWER LIMB (3) GERD -zantac 150mg bid
[2016-06-15] MEDS: RANITIDINE HCL 150 MG TABLET (FP) PO SCH ×2 (15:14→22:50)
--- NOTE | 2016-06-15 16:23 | PN ---
Progress Note, Physician History of Present Illness: patient leg ahs flared up redness and erythema has increased - Current Medication List Current Medications: Active Medications Acetaminophen (Tylenol -) 650 mg PO Q4H PRN PRN Reason: FEVER OR PAIN Last Admin: 06/15/16 06:22 Dose: 650 mg Clindamycin HCl (Cleocin -) 300 mg PO Q6HPO [facility] Last Admin: 06/15/16 11:24 Dose: 300 mg Docusate Sodium (Colace -) 100 mg PO BID [facility] Last Admin: 06/15/16 11:24 Dose: 100 mg Enoxaparin Sodium (Lovenox -) 40 mg SQ DAILY [facility] Last Admin: 06/15/16 11:36 Dose: Not Given Piperacillin Sod/Tazobactam Sod (Zosyn 2.25gm Ivpb (Pre-Docked)) 50 mls @ 100 mls/hr IVPB Q8H-IV [facility] PRN Reason: Protocol Last Admin: 06/15/16 11:24 Dose: 100 mls/hr Clindamycin Phosphate (Cleocin 600 Mg Premix Ivpb -) 50 mls @ 100 mls/hr IVPB Q6H-IV [facility] Lactobacillus Acidophilus (Bacid -) 1 tab PO DAILY [facility] Last Admin: 06/15/16 11:24 Dose: 1 tab Non-Formulary Med ( Lumigan [Bimatoprost ] 0.01% Opth [facility]le) 1 each OU HS [facility] Last Admin: 06/14/16 22:45 Dose: 1 each Ondansetron HCl (Zofran Injection) 4 mg IVPB Q6H PRN PRN Reason: NAUSEA Polyethylene Glycol (Miralax (For Daily Use) -) 17 gm PO DAILY [facility] Last Admin: 06/15/16 11:25 Dose: 17 grams Ranitidine HCl (Zantac -) 150 mg PO BID [facility] Last Admin: 06/15/16 15:14 Dose: 150 mg - Objective Vital Signs: Vital Signs Temperature 99.4 F 06/15/16 15:07 Pulse Rate 67 06/15/16 15:07 Respiratory Rate 18 06/15/16 15:07 Blood Pressure 103/51 06/15/16 15:07 O2 Sat by Pulse Oximetry (%) 98 06/15/16 09:00 Constitutional: Yes: No Distress, Calm Cardiovascular: Yes: Regular Rate and Rhythm Respiratory: Yes: Regular, CTA Bilaterally Gastrointestinal: Yes: Normal Bowel Sounds, Soft Musculoskeletal: Yes: Other Extremities: Yes: Erythema, Other (tenderness) Integumentary: Yes: Erythema, Onychomycosis Neurological: Yes: Alert, Oriented Psychiatric: Yes: Alert Labs: CBC, BMP 06/15/16 06:10 06/15/16 06:10 INR, PTT INR 1.36 (0.82-1.09) H 06/11/16 17:12 Assessment/Plan Problem List - Problems (1) Sepsis Code(s): A41.9 - SEPSIS, UNSPECIFIED ORGANISM (2) Cellulitis of leg without foot, right Code(s): L03.115 - CELLULITIS OF RIGHT LOWER LIMB bacteremia gram positive onchomycosis plan continue zosyn will add clinda to the regimen await for blood cx report rest elevation of the leg nystatin cream in between the toes
[2016-06-15] MEDS: CLINDAMYCIN 600MG PREMIX IVPB 50 ML IVPB SCH ×2 (16:57→21:42)
[2016-06-15] MEDS: PIPERACILLIN/TAZOB 3.375 GM 50 ML IVPB SCH (17:55)
[2016-06-15] MEDS: LUMIGAN 0.01% OU SCH (22:37)
[2016-06-15] MEDS: OPTH OU SCH (22:37)
[2016-06-15] MEDS: NYSTATIN 100000 UNIT/GM TOPICAL OINTMENT 15 GM TUBE TP SCH (22:50)
[2016-06-16] MEDS: PIPERACILLIN/TAZOB 3.375 GM 50 ML IVPB SCH ×3 (02:04→18:00)
[2016-06-16] MEDS: CLINDAMYCIN 600MG PREMIX IVPB 50 ML IVPB SCH ×4 (03:00→21:57)
[2016-06-16 07:49] LABS: BASOPHIL 0.9 % (0-2.0); EOSINOPHIL 2.4 % (0-4.5); MCH 31.1 pg (25.7-33.7); MCHC 33.8 g/dl (32.0-36.0); MEAN CELL VOLUME 91.9 fl (80-96); MEAN PLT VOLUME 7.6 fl (7.5-11.1); NEUTROPHILS 61.3 % (42.8-82.8); PLATELET COUNT 243 K/MM3 (134-434); RDW 13.4 % (11.6-15.6); WHITE BLOOD COUNT 6.2 K/mm3 (4.0-10.0)
[2016-06-16 08:09] LABS: CALCIUM 8.1 mg/dL (8.5-10.1); CREATININE 0.9 mg/dL (0.55-1.02); MAGNESIUM 2.2 mg/dL (1.8-2.4); PHOSPHOROUS 4.8 mg/dL (2.5-4.9)
[2016-06-16] MEDS: NYSTATIN 100000 UNIT/GM TOPICAL OINTMENT 15 GM TUBE TP SCH ×2 (10:46→22:09)
[2016-06-16] MEDS: RANITIDINE HCL 150 MG TABLET (FP) PO SCH ×2 (10:46→21:57)
[2016-06-16] MEDS: ENOXAPARIN NA (PORCINE) 40 MG/0.4 ML DISP.SYRIN SQ SCH (10:46)
[2016-06-16] MEDS: POLYETHYLENE GLYCOL 3350 119 GM BTL PO SCH (10:46)
[2016-06-16] MEDS: LACTOBACILLUS ACIDOPHILUS 1 EACH TAB (FP) PO SCH (10:46)
[2016-06-16] MEDS: DOCUSATE SODIUM 100 MG CAPSULE (FP) PO SCH ×2 (10:46→21:56)
[2016-06-16] MEDS: ACETAMINOPHEN 325 MG TABLET (FP) PO PRN ×2 (10:57→21:57)
--- NOTE | 2016-06-16 12:30 | PN ---
Progress Note, Physician Chief Complaint: Ms Wells complains of chronic pain. No cp, sob, n/v. - Current Medication List Current Medications: Active Medications Acetaminophen (Tylenol -) 650 mg PO Q4H PRN PRN Reason: FEVER OR PAIN Last Admin: 06/16/16 10:57 Dose: 650 mg Docusate Sodium (Colace -) 100 mg PO BID [facility] Last Admin: 06/16/16 10:46 Dose: 100 mg Enoxaparin Sodium (Lovenox -) 40 mg SQ DAILY [facility] Last Admin: 06/16/16 10:46 Dose: Not Given Clindamycin Phosphate (Cleocin 600 Mg Premix Ivpb -) 50 mls @ 100 mls/hr IVPB Q6H-IV [facility] Last Admin: 06/16/16 08:51 Dose: 100 mls/hr Piperacillin Sod/Tazobactam Sod (Zosyn 3.375gm Ivpb (Pre-Docked)) 50 mls @ 100 mls/hr IVPB Q8H-IV DI PRN Reason: Protocol Last Admin: 06/16/16 10:46 Dose: 100 mls/hr Lactobacillus Acidophilus (Bacid -) 1 tab PO DAILY [facility] Last Admin: 06/16/16 10:46 Dose: 1 tab Non-Formulary Med ( Lumigan [Bimatoprost ] 0.01% Opth [facility]le) 1 each OU HS [facility] Last Admin: 06/15/16 22:37 Dose: Not Given Nystatin (Mycostatin Ointment -) 1 applic TP BID [facility] Last Admin: 06/16/16 10:46 Dose: 1 applic Ondansetron HCl (Zofran Injection) 4 mg IVPB Q6H PRN PRN Reason: NAUSEA Polyethylene Glycol (Miralax (For Daily Use) -) 17 gm PO DAILY [facility] Last Admin: 06/16/16 10:46 Dose: Not Given Ranitidine HCl (Zantac -) 150 mg PO BID [facility] Last Admin: 06/16/16 10:46 Dose: 150 mg - Objective Vital Signs: Vital Signs Temperature 98.8 F 06/16/16 06:00 Pulse Rate 79 06/16/16 06:00 Respiratory Rate 18 06/16/16 06:00 Blood Pressure 120/60 06/16/16 06:00 O2 Sat by Pulse Oximetry (%) 98 06/15/16 21:00 Constitutional: Yes: Well Nourished, No Distress, Calm Cardiovascular: Yes: Regular Rate and Rhythm. No: Gallop, Murmur, Rub Respiratory: Yes: Regular, CTA Bilaterally. No: Rales, Rhonchi, Wheezes Gastrointestinal: Yes: Normal Bowel Sounds, Soft. No: Distention, Tenderness Extremities: Yes: Erythema (improved) Edema: No Labs: CBC, BMP 06/16/16 06:30 06/16/16 06:30 INR, PTT INR 1.36 (0.82-1.09) H 06/11/16 17:12 Problem List - Problems (1) Sepsis Code(s): A41.9 - SEPSIS, UNSPECIFIED ORGANISM (2) Cellulitis of leg without foot, right Code(s): L03.115 - CELLULITIS OF RIGHT LOWER LIMB Assessment/Plan (1) Sepsis Assessment/Plan: -blood cultures growing GBS -secondary to wound on leg -continue zosyn -ID following Code(s): A41.9 - SEPSIS, UNSPECIFIED ORGANISM (2) Cellulitis of leg without foot, right Assessment/Plan: -clindamycin changed to IV -erythema improved -continue zosyn and clindamycin Code(s): L03.115 - CELLULITIS OF RIGHT LOWER LIMB (3) GERD -zantac 150mg bid
--- NOTE | 2016-06-16 15:45 | PN ---
Progress Note, Physician History of Present Illness: patient having dirrhoea leg looks better pain better - Current Medication List Current Medications: Active Medications Acetaminophen (Tylenol -) 650 mg PO Q4H PRN PRN Reason: FEVER OR PAIN Last Admin: 06/16/16 10:57 Dose: 650 mg Docusate Sodium (Colace -) 100 mg PO BID [facility] Last Admin: 06/16/16 10:46 Dose: 100 mg Enoxaparin Sodium (Lovenox -) 40 mg SQ DAILY [facility] Last Admin: 06/16/16 10:46 Dose: Not Given Clindamycin Phosphate (Cleocin 600 Mg Premix Ivpb -) 50 mls @ 100 mls/hr IVPB Q6H-IV [facility] Last Admin: 06/16/16 15:26 Dose: 100 mls/hr Piperacillin Sod/Tazobactam Sod (Zosyn 3.375gm Ivpb (Pre-Docked)) 50 mls @ 100 mls/hr IVPB Q8H-IV DI PRN Reason: Protocol Last Admin: 06/16/16 10:46 Dose: 100 mls/hr Lactobacillus Acidophilus (Bacid -) 1 tab PO DAILY [facility] Last Admin: 06/16/16 10:46 Dose: 1 tab Non-Formulary Med ( Lumigan [Bimatoprost ] 0.01% Opth [facility]le) 1 each OU HS [facility] Last Admin: 06/15/16 22:37 Dose: Not Given Nystatin (Mycostatin Ointment -) 1 applic TP BID [facility] Last Admin: 06/16/16 10:46 Dose: 1 applic Ondansetron HCl (Zofran Injection) 4 mg IVPB Q6H PRN PRN Reason: NAUSEA Polyethylene Glycol (Miralax (For Daily Use) -) 17 gm PO DAILY [facility] Last Admin: 06/16/16 10:46 Dose: Not Given Ranitidine HCl (Zantac -) 150 mg PO BID [facility] Last Admin: 06/16/16 10:46 Dose: 150 mg - Objective Vital Signs: Vital Signs Temperature 98.4 F 06/16/16 15:23 Pulse Rate 75 06/16/16 15:23 Respiratory Rate 18 06/16/16 15:23 Blood Pressure 101/51 06/16/16 15:23 O2 Sat by Pulse Oximetry (%) 99 06/16/16 09:00 Constitutional: Yes: No Distress, Calm Cardiovascular: Yes: Regular Rate and Rhythm Respiratory: Yes: Regular, CTA Bilaterally Gastrointestinal: Yes: Normal Bowel Sounds, Soft Musculoskeletal: Yes: Other Extremities: Yes: Erythema (decreased leg looking better) Neurological: Yes: Alert, Oriented Psychiatric: Yes: Alert Labs: CBC, BMP 06/16/16 06:30 06/16/16 06:30 INR, PTT INR 1.36 (0.82-1.09) H 06/11/16 17:12 Assessment/Plan Problem List - Problems (1) Sepsis Code(s): A41.9 - SEPSIS, UNSPECIFIED ORGANISM (2) Cellulitis of leg without foot, right Code(s): L03.115 - CELLULITIS OF RIGHT LOWER LIMB bacteremia gram positive onchomycosis plan continue abx cdiff toxin negative repeat cx negative continue elevation monitor erythema
--- NOTE | 2016-06-16 18:46 | CON.ENT ---
Consult Consult Specialty:: ENT Referred by:: Dr. Kwong Reason for Consultation:: left ear pain - History of Present Illness Chief Complaint: left ear pain History of Present Illness: 85 yo female with several day history of stabbing left ear pain. possibly related to one of her IV medications? no prior ear problems, right ear asymptomatic, better today. no drainage, no tinnitus, no acute change in her hearing known hx of deviated septum, denies specific sinus problems. also hx of sleep apnea, on CPAP but intermittent problems with her device and mask. - History Source History Provided By: Patient, Medical Record Limitations to Obtaining History: No Limitations - Past Surgical History Past Surgical History: Yes: None - Alcohol/Substance Use Hx Alcohol Use: No History of Substance Use: reports: None - Smoking History Smoking history: Never smoked - Social History ADL: Independent History of Recent Travel: No Home Medications - Allergies Allergies/Adverse Reactions: Allergies Allergy/AdvReac Type Severity Reaction Status Date / Time Sulfa (Sulfonamide Allergy Intermediate Rash Verified 06/11/16 16:16 Antibiotics) soy AdvReac Verified 06/11/16 16:16 wheat AdvReac Verified 06/11/16 16:16 sulfa AdvReac Intermediate Uncoded 06/11/16 16:16 wheat AdvReac Mild Uncoded 06/11/16 16:16 dairy products AdvReac Uncoded 06/11/16 16:16 soy AdvReac Uncoded 06/11/16 16:16 - Home Medications Home Medications: Ambulatory Orders Bimatoprost [Lumigan] 1 drop OU HS 06/11/16 Family Disease History - Family Disease History Family Disease History: Diabetes: Father Review of Systems - Review of Systems Constitutional: reports: No Symptoms Physical Exam-ENT Vital Signs: Vital Signs Temperature 98.4 F 06/16/16 15:23 Pulse Rate 75 06/16/16 15:23 Respiratory Rate 18 06/16/16 15:23 Blood Pressure 101/51 06/16/16 15:23 O2 Sat by Pulse Oximetry (%) 99 06/16/16 09:00 Constitutional: Yes: No Distress, Calm Head: Yes: WNL Face: Yes: WNL Eyes: Yes: WNL Nose: Yes: Septum Deviated Nasal Passage: Yes: WNL Oral/Pharynx: Yes: WNL Outer Ear: Yes: WNL Ear Canal: Yes: WNL Tympanic Membrane: Yes: WNL Neck: Yes: WNL Imaging - Results Cat Scan: Report Reviewed, Image Reviewed (CT he) Problem List - Problems (1) Ear pain, left Assessment/Plan: intermittent left ear pain temporally related to her IV medication exam is normal Ct scan of temporal bones WNL, no otomastoiditis TMJ's normal on exam Recommend: observe analgesia prn to office after discharge for outpatient follow-up Code(s): H92.02 - OTALGIA, LEFT EAR (2) Sleep apnea in adult Assessment/Plan: known sleep apnea using CPAP at home but device/mask aren't working well Recommend: to office after discharge, should work with her CPAP vendor to possibly refit mask Code(s): G47.33 - OBSTRUCTIVE SLEEP APNEA (ADULT) (PEDIATRIC) (3) Deviated nasal septum Assessment/Plan: known deviation of septum, mild on exam and CT scan incidental right ethmoid sinus disease found on CT scan observe Thank you for consultation, Marlon Denise MD FACS Code(s): J34.2 - DEVIATED NASAL SEPTUM
[2016-06-16] MEDS: LUMIGAN 0.01% OU SCH (22:08)
[2016-06-16] MEDS: OPTH OU SCH (22:08)
[2016-06-17] MEDS: PIPERACILLIN/TAZOB 3.375 GM 50 ML IVPB SCH ×4 (02:18→17:07)
[2016-06-17] MEDS: CLINDAMYCIN 600MG PREMIX IVPB 50 ML IVPB SCH ×4 (04:00→22:11)
[2016-06-17] MEDS: ACETAMINOPHEN 325 MG TABLET (FP) PO PRN (09:00)
[2016-06-17] MEDS: LACTOBACILLUS ACIDOPHILUS 1 EACH TAB (FP) PO SCH (09:21)
[2016-06-17] MEDS: DOCUSATE SODIUM 100 MG CAPSULE (FP) PO SCH ×2 (09:21→22:06)
[2016-06-17] MEDS: RANITIDINE HCL 150 MG TABLET (FP) PO SCH ×2 (09:21→22:06)
[2016-06-17] MEDS: ENOXAPARIN NA (PORCINE) 40 MG/0.4 ML DISP.SYRIN SQ SCH (09:21)
[2016-06-17] MEDS: POLYETHYLENE GLYCOL 3350 119 GM BTL PO SCH (09:22)
[2016-06-17 09:41] LABS: BASOPHIL 0.9 % (0-2.0); EOSINOPHIL 3.8 % (0-4.5); MCHC 33.6 g/dl (32.0-36.0); MEAN CELL VOLUME 92.4 fl (80-96); MEAN PLT VOLUME 7.4 fl (7.5-11.1); NEUTROPHILS 64.4 % (42.8-82.8); PLATELET COUNT 334 K/MM3 (134-434); RDW 13.3 % (11.6-15.6); WHITE BLOOD COUNT 6.5 K/mm3 (4.0-10.0)
[2016-06-17 09:50] LABS: CALCIUM 8.3 mg/dL (8.5-10.1); MAGNESIUM 2.3 mg/dL (1.8-2.4)
[2016-06-17 09:51] LABS: CREATININE 0.9 mg/dL (0.55-1.02); PHOSPHOROUS 3.7 mg/dL (2.5-4.9)
[2016-06-17] MEDS: NYSTATIN 100000 UNIT/GM TOPICAL OINTMENT 15 GM TUBE TP SCH ×2 (10:04→22:11)
--- NOTE | 2016-06-17 11:08 | PN ---
Progress Note, Physician Chief Complaint: Ms Wells complains of chronic pain. No cp, sob, n/v. - Current Medication List Current Medications: Active Medications Acetaminophen (Tylenol -) 650 mg PO Q4H PRN PRN Reason: FEVER OR PAIN Last Admin: 06/17/16 09:00 Dose: 650 mg Docusate Sodium (Colace -) 100 mg PO BID [facility] Last Admin: 06/17/16 09:21 Dose: 100 mg Enoxaparin Sodium (Lovenox -) 40 mg SQ DAILY [facility] Last Admin: 06/17/16 09:21 Dose: 40 mg Clindamycin Phosphate (Cleocin 600 Mg Premix Ivpb -) 50 mls @ 100 mls/hr IVPB Q6H-IV [facility] Last Admin: 06/17/16 09:21 Dose: 100 mls/hr Piperacillin Sod/Tazobactam Sod (Zosyn 3.375gm Ivpb (Pre-Docked)) 50 mls @ 100 mls/hr IVPB Q8H-IV DI PRN Reason: Protocol Last Admin: 06/17/16 11:07 Dose: 100 mls/hr Lactobacillus Acidophilus (Bacid -) 1 tab PO DAILY [facility] Last Admin: 06/17/16 09:21 Dose: 1 tab Non-Formulary Med ( Lumigan [Bimatoprost ] 0.01% Opth Isabelle) 1 each OU HS [facility] Last Admin: 06/16/16 22:08 Dose: Not Given Nystatin (Mycostatin Ointment -) 1 applic TP BID [facility] Last Admin: 06/16/16 22:09 Dose: 1 applic Ondansetron HCl (Zofran Injection) 4 mg IVPB Q6H PRN PRN Reason: NAUSEA Polyethylene Glycol (Miralax (For Daily Use) -) 17 gm PO DAILY [facility] Last Admin: 06/17/16 09:22 Dose: 17 grams Ranitidine HCl (Zantac -) 150 mg PO BID [facility] Last Admin: 06/17/16 09:21 Dose: 150 mg - Objective Vital Signs: Vital Signs Temperature 97.6 F 06/17/16 08:55 Pulse Rate 78 06/17/16 08:55 Respiratory Rate 16 06/17/16 09:00 Blood Pressure 125/48 06/17/16 08:55 O2 Sat by Pulse Oximetry (%) 99 06/17/16 09:00 Constitutional: Yes: Well Nourished, No Distress, Calm Cardiovascular: Yes: Regular Rate and Rhythm. No: Gallop, Murmur, Rub Respiratory: Yes: Regular, CTA Bilaterally. No: Rales, Rhonchi, Wheezes Gastrointestinal: Yes: Normal Bowel Sounds, Soft. No: Distention, Tenderness Extremities: Yes: Erythema (improved but still significant) Edema: No Labs: CBC, BMP 06/17/16 08:20 06/17/16 08:20 INR, PTT INR 1.36 (0.82-1.09) H 06/11/16 17:12 Problem List - Problems (1) Sepsis Code(s): A41.9 - SEPSIS, UNSPECIFIED ORGANISM (2) Cellulitis of leg without foot, right Code(s): L03.115 - CELLULITIS OF RIGHT LOWER LIMB Assessment/Plan (1) Sepsis Assessment/Plan: -blood cultures growing GBS -secondary to wound on leg -continue zosyn -ID following Code(s): A41.9 - SEPSIS, UNSPECIFIED ORGANISM (2) Cellulitis of leg without foot, right Assessment/Plan: -clindamycin changed to IV on 06/16 -erythema continues to improve -continue zosyn and clindamycin Code(s): L03.115 - CELLULITIS OF RIGHT LOWER LIMB (3) GERD -zantac 150mg bid
--- NOTE | 2016-06-17 13:29 | PN ---
Progress Note, Physician History of Present Illness: doing better pain still present - Current Medication List Current Medications: Active Medications Acetaminophen (Tylenol -) 650 mg PO Q4H PRN PRN Reason: FEVER OR PAIN Last Admin: 06/17/16 09:00 Dose: 650 mg Docusate Sodium (Colace -) 100 mg PO BID [facility] Last Admin: 06/17/16 09:21 Dose: 100 mg Enoxaparin Sodium (Lovenox -) 40 mg SQ DAILY [facility] Last Admin: 06/17/16 09:21 Dose: 40 mg Clindamycin Phosphate (Cleocin 600 Mg Premix Ivpb -) 50 mls @ 100 mls/hr IVPB Q6H-IV [facility] Last Admin: 06/17/16 09:21 Dose: 100 mls/hr Piperacillin Sod/Tazobactam Sod (Zosyn 3.375gm Ivpb (Pre-Docked)) 50 mls @ 100 mls/hr IVPB Q8H-IV [facility] PRN Reason: Protocol Last Admin: 06/17/16 11:07 Dose: 100 mls/hr Lactobacillus Acidophilus (Bacid -) 1 tab PO DAILY [facility] Last Admin: 06/17/16 09:21 Dose: 1 tab Non-Formulary Med ( Lumigan [Bimatoprost ] 0.01% Opth Isabelle) 1 each OU HS [facility] Last Admin: 06/16/16 22:08 Dose: Not Given Nystatin (Mycostatin Ointment -) 1 applic TP BID [facility] Last Admin: 06/16/16 22:09 Dose: 1 applic Ondansetron HCl (Zofran Injection) 4 mg IVPB Q6H PRN PRN Reason: NAUSEA Polyethylene Glycol (Miralax (For Daily Use) -) 17 gm PO DAILY [facility] Last Admin: 06/17/16 09:22 Dose: 17 grams Ranitidine HCl (Zantac -) 150 mg PO BID [facility] Last Admin: 06/17/16 09:21 Dose: 150 mg - Objective Vital Signs: Vital Signs Temperature 97.6 F 06/17/16 08:55 Pulse Rate 78 06/17/16 08:55 Respiratory Rate 16 06/17/16 09:00 Blood Pressure 125/48 06/17/16 08:55 O2 Sat by Pulse Oximetry (%) 99 06/17/16 09:00 Constitutional: Yes: No Distress, Calm Neck: Yes: Supple Cardiovascular: Yes: Regular Rate and Rhythm Respiratory: Yes: Regular, CTA Bilaterally Gastrointestinal: Yes: Normal Bowel Sounds, Soft Musculoskeletal: Yes: Other Extremities: Yes: Erythema (decreasing swelling has decreased) Integumentary: Yes: Erythema (better), Onychomycosis Neurological: Yes: Alert, Oriented Psychiatric: Yes: Alert Labs: CBC, BMP 06/17/16 08:20 06/17/16 08:20 INR, PTT INR 1.36 (0.82-1.09) H 06/11/16 17:12 Assessment/Plan Problem List - Problems (1) Sepsis Code(s): A41.9 - SEPSIS, UNSPECIFIED ORGANISM (2) Cellulitis of leg without foot, right Code(s): L03.115 - CELLULITIS OF RIGHT LOWER LIMB bacteremia gram positive onchomycosis plan continue abx elevation of the leg
[2016-06-17] MEDS ORDERED: PT OWN MED DRAWER 7, Y5N ONE (21:41)
[2016-06-17] MEDS: OPTH OU SCH (22:12)
[2016-06-17] MEDS: LUMIGAN 0.01% OU SCH (22:12)
[2016-06-18] MEDS: PIPERACILLIN/TAZOB 3.375 GM 50 ML IVPB SCH ×3 (01:30→17:50)
[2016-06-18] MEDS: CLINDAMYCIN 600MG PREMIX IVPB 50 ML IVPB SCH ×4 (02:23→20:41)
[2016-06-18 07:37] LABS: BASOPHIL 0.9 % (0-2.0); EOSINOPHIL 1.5 % (0-4.5); MCH 31.2 pg (25.7-33.7); MCHC 33.9 g/dl (32.0-36.0); MEAN CELL VOLUME 92.1 fl (80-96); MEAN PLT VOLUME 7.2 fl (7.5-11.1); NEUTROPHILS 70.5 % (42.8-82.8); PLATELET COUNT 386 K/MM3 (134-434); RDW 13.4 % (11.6-15.6); WHITE BLOOD COUNT 7.6 K/mm3 (4.0-10.0)
[2016-06-18 08:09] LABS: CREATININE 0.8 mg/dL (0.55-1.02); MAGNESIUM 2.3 mg/dL (1.8-2.4); PHOSPHOROUS 3.2 mg/dL (2.5-4.9)
--- NOTE | 2016-06-18 08:31 | PN ---
Progress Note (short form) - Note Progress Note: Patient seen and examined. Chart reviewed at length. Patient currently sitting up in bed, alert and appropriate. RLE discomfort persists, but improved overall. Her greatest concern is her generalized weakness and arthralgias which limit her ambulatory capacity and independence. Patient reassured. Labs and field service consultant notes reviewed. Selected Entries 06/17/16 06/18/16 06/18/16 21:00 06:17 06:40 Temperature 99.5 F Pulse Rate 82 Respiratory 20 Rate Blood Pressure 112/54 O2 Sat by Pulse 97 Oximetry (%) Oxygen Delivery Room Air Method Laboratory Tests 06/18/16 06/18/16 06:00 06:00 WBC 7.6 Hgb 10.7 Hct 31.5 L Plt Count 386 Sodium 138 Potassium 4.6 Chloride 105 Carbon Dioxide 26 BUN 11 Creatinine 0.8 Random Glucose 88 Calcium 8.0 L Phosphorus 3.2 Magnesium 2.3 Chest Cleat Cor RRR Abd Soft non-tender Ext Fading erythema RLE No edema Neuro No new focal deficits Assessment and Plan Septicemia B-hemolytic strep in initial blood cultures On Rx Cellulitis RLE On Rx Anemia 10.7/31.5 Monitor AGUSTINA Currently inactive Device at home not working well Will look into getting a new mask Currently stable
[2016-06-18] MEDS: ACETAMINOPHEN 325 MG TABLET (FP) PO PRN ×2 (09:44→17:51)
[2016-06-18] MEDS: DOCUSATE SODIUM 100 MG CAPSULE (FP) PO SCH ×2 (09:45→21:08)
[2016-06-18] MEDS: LACTOBACILLUS ACIDOPHILUS 1 EACH TAB (FP) PO SCH ×2 (09:45→21:08)
[2016-06-18] MEDS: ENOXAPARIN NA (PORCINE) 40 MG/0.4 ML DISP.SYRIN SQ SCH (09:45)
[2016-06-18] MEDS: RANITIDINE HCL 150 MG TABLET (FP) PO SCH ×2 (09:45→21:08)
[2016-06-18] MEDS: NYSTATIN 100000 UNIT/GM TOPICAL OINTMENT 15 GM TUBE TP SCH ×2 (09:47→21:08)
[2016-06-18] MEDS: POLYETHYLENE GLYCOL 3350 119 GM BTL PO SCH ×2 (09:47→10:37)
--- NOTE | 2016-06-18 14:00 | PN ---
Progress Note, Physician History of Present Illness: patient feeling better pain has decreased erythema improving - Current Medication List Current Medications: Active Medications Acetaminophen (Tylenol -) 650 mg PO Q4H PRN PRN Reason: FEVER OR PAIN Last Admin: 06/18/16 09:44 Dose: 650 mg Docusate Sodium (Colace -) 100 mg PO BID [facility] Last Admin: 06/18/16 09:45 Dose: 100 mg Enoxaparin Sodium (Lovenox -) 40 mg SQ DAILY [facility] Last Admin: 06/18/16 09:45 Dose: 40 mg Clindamycin Phosphate (Cleocin 600 Mg Premix Ivpb -) 50 mls @ 100 mls/hr IVPB Q6H-IV [facility] Last Admin: 06/18/16 09:46 Dose: 100 mls/hr Piperacillin Sod/Tazobactam Sod (Zosyn 3.375gm Ivpb (Pre-Docked)) 50 mls @ 100 mls/hr IVPB Q8H-IV [facility] PRN Reason: Protocol Last Admin: 06/18/16 09:48 Dose: 100 mls/hr Lactobacillus Acidophilus (Bacid -) 1 tab PO BID [facility] Non-Formulary Med ( Lumigan [Bimatoprost ] 0.01% Opth Isabelle) 1 each OU HS [facility] Last Admin: 06/17/16 22:12 Dose: Not Given Nystatin (Mycostatin Ointment -) 1 applic TP BID [facility] Last Admin: 06/18/16 09:47 Dose: 1 applic Ondansetron HCl (Zofran Injection) 4 mg IVPB Q6H PRN PRN Reason: NAUSEA Polyethylene Glycol (Miralax (For Daily Use) -) 17 gm PO DAILY [facility] Last Admin: 06/18/16 10:37 Dose: Not Given Ranitidine HCl (Zantac -) 150 mg PO BID [facility] Last Admin: 06/18/16 09:45 Dose: 150 mg - Objective Vital Signs: Vital Signs Temperature 99.5 F 06/18/16 06:40 Pulse Rate 82 06/18/16 06:17 Respiratory Rate 20 06/18/16 13:47 Blood Pressure 112/54 06/18/16 06:17 O2 Sat by Pulse Oximetry (%) 97 06/18/16 13:47 Constitutional: Yes: No Distress, Calm Cardiovascular: Yes: Regular Rate and Rhythm Respiratory: Yes: Regular, CTA Bilaterally Gastrointestinal: Yes: Normal Bowel Sounds, Soft Musculoskeletal: Yes: Other Extremities: Yes: Erythema, Other Neurological: Yes: Alert, Oriented Psychiatric: Yes: Alert Labs: CBC, BMP 06/18/16 06:00 06/18/16 06:00 INR, PTT INR 1.36 (0.82-1.09) H 06/11/16 17:12 Assessment/Plan Problem List - Problems (1) Sepsis Code(s): A41.9 - SEPSIS, UNSPECIFIED ORGANISM (2) Cellulitis of leg without foot, right Code(s): L03.115 - CELLULITIS OF RIGHT LOWER LIMB bacteremia gram positive onchomycosis plan continue abx elevation of the leg erythema improving
[2016-06-18] MEDS ORDERED: PT OWN MED DRAWER 7, Y5N ONE (20:59)
[2016-06-18] MEDS: OPTH OU SCH (21:10)
[2016-06-18] MEDS: LUMIGAN 0.01% OU SCH (21:10)
[2016-06-19] MEDS: PIPERACILLIN/TAZOB 3.375 GM 50 ML IVPB SCH ×3 (01:50→18:22)
[2016-06-19] MEDS: CLINDAMYCIN 600MG PREMIX IVPB 50 ML IVPB SCH ×4 (03:09→22:02)
[2016-06-19 08:43] LABS: BASOPHIL 0.6 % (0-2.0); EOSINOPHIL 1.4 % (0-4.5); MCH 30.6 pg (25.7-33.7); MCHC 33.5 g/dl (32.0-36.0); MEAN CELL VOLUME 91.3 fl (80-96); MEAN PLT VOLUME 7.2 fl (7.5-11.1); NEUTROPHILS 73.4 % (42.8-82.8); PLATELET COUNT 453 K/MM3 (134-434); RDW 13.5 % (11.6-15.6); WHITE BLOOD COUNT 7.9 K/mm3 (4.0-10.0)
--- NOTE | 2016-06-19 08:48 | PN ---
Progress Note (short form) - Note Progress Note: Patient seen and examined. Chart reviewed at length. Patient currently sitting up in bed, alert and appropriate, tolerating her breakfast. RLE discomfort persists, but improved overall. Her greatest concern remains her generalized weakness and arthralgias which limit her overall strength, ambulatory capacity and independence. Patient reassured. Labs and air quality consultant notes reviewed. Temperature elevation noted. Selected Entries 06/18/16 06/19/16 21:00 08:02 Temperature 99.7 F H Pulse Rate 78 Respiratory 20 Rate Blood Pressure 108/50 O2 Sat by Pulse 97 Oximetry (%) Oxygen Delivery Room Air Method Today's labs pending Chest Clear Cor RRR Abd Soft non-tender Ext Fading erythema RLE No edema Pinpoint ?petechial erythema Neuro No new focal deficits Assessment and Plan Septicemia B-hemolytic strep in initial blood cultures On Rx Cellulitis RLE On Rx with Zosyn and Clindamycin as per Dr Hurtado Anemia 10.7/31.5 Monitor Check platelet count AGUSTINA Currently inactive Device at home not working well Will look into getting a new mask Currently stable Continue current Rx Will need PT for ambulation
[2016-06-19 08:53] LABS: ALBUMIN 2.3 g/dl (3.4-5.0); ALK PHOS 59 U/L (45-117); ANION GAP 13 (8-16); BILIRUBIN,TOTAL 0.4 mg/dL (0.2-1.0); CALCIUM 7.9 mg/dL (8.5-10.1); CO2 24 mmol/L (21-32); CREATININE 0.8 mg/dL (0.55-1.02); GLUCOSE,RANDOM 88 mg/dL (74-106); SGOT/AST 18 U/L (15-37); SGPT/ALT 27 U/L (12-78)
[2016-06-19] MEDS: ENOXAPARIN NA (PORCINE) 40 MG/0.4 ML DISP.SYRIN SQ SCH (10:19)
[2016-06-19] MEDS: LACTOBACILLUS ACIDOPHILUS 1 EACH TAB (FP) PO SCH ×2 (10:19→22:02)
[2016-06-19] MEDS: POLYETHYLENE GLYCOL 3350 119 GM BTL PO SCH (10:20)
[2016-06-19] MEDS: NYSTATIN 100000 UNIT/GM TOPICAL OINTMENT 15 GM TUBE TP SCH ×2 (10:20→22:05)
[2016-06-19] MEDS: RANITIDINE HCL 150 MG TABLET (FP) PO SCH ×2 (10:20→22:02)
[2016-06-19] MEDS: DOCUSATE SODIUM 100 MG CAPSULE (FP) PO SCH ×2 (10:20→22:02)
[2016-06-19] MEDS: ACETAMINOPHEN 325 MG TABLET (FP) PO PRN ×2 (15:41→19:05)
--- NOTE | 2016-06-19 16:12 | PN ---
Progress Note, Physician History of Present Illness: patient erythema is improving but she continues to ahve pain in the leg weakness present patient also spiked a fever - Current Medication List Current Medications: Active Medications Acetaminophen (Tylenol -) 650 mg PO Q4H PRN PRN Reason: FEVER OR PAIN Last Admin: 06/19/16 15:41 Dose: 650 mg Docusate Sodium (Colace -) 100 mg PO BID [facility] Last Admin: 06/19/16 10:20 Dose: Not Given Enoxaparin Sodium (Lovenox -) 40 mg SQ DAILY [facility] Last Admin: 06/19/16 10:19 Dose: 40 mg Clindamycin Phosphate (Cleocin 600 Mg Premix Ivpb -) 50 mls @ 100 mls/hr IVPB Q6H-IV [facility] Last Admin: 06/19/16 15:36 Dose: 100 mls/hr Piperacillin Sod/Tazobactam Sod (Zosyn 3.375gm Ivpb (Pre-Docked)) 50 mls @ 100 mls/hr IVPB Q8H-IV DI PRN Reason: Protocol Last Admin: 06/19/16 10:19 Dose: 100 mls/hr Lactobacillus Acidophilus (Bacid -) 1 tab PO BID [facility] Last Admin: 06/19/16 10:19 Dose: 1 tab Non-Formulary Med ( Lumigan [Bimatoprost ] 0.01% Opth Isabelle) 1 each OU HS [facility] Last Admin: 06/18/16 21:10 Dose: 1 each Nystatin (Mycostatin Ointment -) 1 applic TP BID [facility] Last Admin: 06/19/16 10:20 Dose: 1 applic Ondansetron HCl (Zofran Injection) 4 mg IVPB Q6H PRN PRN Reason: NAUSEA Polyethylene Glycol (Miralax (For Daily Use) -) 17 gm PO DAILY [facility] Last Admin: 06/19/16 10:20 Dose: Not Given Ranitidine HCl (Zantac -) 150 mg PO BID [facility] Last Admin: 06/19/16 10:20 Dose: 150 mg - Objective Vital Signs: Vital Signs Temperature 102.9 F H 06/19/16 15:47 Pulse Rate 94 H 06/19/16 15:47 Respiratory Rate 18 06/19/16 15:47 Blood Pressure 120/55 06/19/16 15:47 O2 Sat by Pulse Oximetry (%) 97 06/18/16 21:00 Constitutional: Yes: No Distress, Calm Cardiovascular: Yes: Regular Rate and Rhythm Respiratory: Yes: Regular, CTA Bilaterally Gastrointestinal: Yes: Normal Bowel Sounds, Soft Musculoskeletal: Yes: Other Extremities: Yes: Erythema (improving) Neurological: Yes: Alert, Oriented Psychiatric: Yes: Alert Labs: CBC, BMP 06/19/16 07:40 06/19/16 07:40 INR, PTT INR 1.36 (0.82-1.09) H 06/11/16 17:12 Assessment/Plan Problem List - Problems (1) Sepsis Code(s): A41.9 - SEPSIS, UNSPECIFIED ORGANISM (2) Cellulitis of leg without foot, right Code(s): L03.115 - CELLULITIS OF RIGHT LOWER LIMB bacteremia gram positive onchomycosis plan continue abx elevation of the leg erythema improving in view of her constant pain will order a duplex of the leg
[2016-06-19] MEDS: oxyCODONE HCL 5 MG TABLET PO PRN (19:04)
[2016-06-19] MEDS: OPTH OU SCH (22:05)
[2016-06-19] MEDS: LUMIGAN 0.01% OU SCH (22:05)
[2016-06-20] MEDS: PIPERACILLIN/TAZOB 3.375 GM 50 ML IVPB SCH ×3 (01:16→18:38)
[2016-06-20] MEDS: CLINDAMYCIN 600MG PREMIX IVPB 50 ML IVPB SCH ×2 (02:47→09:01)
--- NOTE | 2016-06-20 08:32 | PN ---
Progress Note (short form) - Note Progress Note: Patient seen and examined. Chart reviewed at length. Patient currently sitting up in bed, alert and appropriate, tolerating her breakfast. RLE discomfort persists with pain in lower leg area when bearing weight, but improved overall. Her greatest concern remains her generalized weakness and arthralgias which limit her overall strength, ambulatory capacity and independence. Patient reassured. Labs and farm consultant notes reviewed. Temperature elevation noted again. Leg pain prompted Vascular Ultrasound assessment revealed no DVT, but popliteal area cystic structure with internal debris. Selected Entries 06/19/16 06/20/16 21:00 06:00 Temperature 100.3 F H Pulse Rate 84 Respiratory 18 Rate Blood Pressure 111/51 O2 Sat by Pulse 96 Oximetry (%) Oxygen Delivery Room Air Method Laboratory Tests 06/19/16 06/19/16 07:40 07:40 WBC 7.9 Hgb 10.8 Hct 32.2 L Plt Count 453 H Sodium 140 Potassium 4.3 Chloride 103 Anion Gap 13 BUN 10 Creatinine 0.8 Random Glucose 88 Calcium 7.9 L Total Bilirubin 0.4 D ALT 27 Alkaline Phosphatase 59 D Total Protein 6.0 L Albumin 2.3 L D Chest Clear Cor RRR Abd Soft non-tender Ext Fading erythema RLE with further overall improvement No edema Neuro No new focal deficits Assessment and Plan Septicemia B-hemolytic strep in initial blood cultures On Rx Cellulitis RLE On Rx with Zosyn and Clindamycin as per Dr Hurtado ? switch to oral Rx Anemia 10.7/31.5>>10.8/32.2 Monitor Check platelet count 453K AGUSTINA Currently inactive Device at home not working well Will look into getting a new mask Currently stable Fever Possible drug fever at this point? Continue current Rx Will need PT for ambulation
[2016-06-20] MEDS: LACTOBACILLUS ACIDOPHILUS 1 EACH TAB (FP) PO SCH ×2 (09:58→21:45)
[2016-06-20] MEDS: NYSTATIN 100000 UNIT/GM TOPICAL OINTMENT 15 GM TUBE TP SCH ×2 (09:58→21:48)
[2016-06-20] MEDS: DOCUSATE SODIUM 100 MG CAPSULE (FP) PO SCH ×2 (09:58→21:45)
[2016-06-20] MEDS: ENOXAPARIN NA (PORCINE) 40 MG/0.4 ML DISP.SYRIN SQ SCH (09:58)
[2016-06-20] MEDS: POLYETHYLENE GLYCOL 3350 119 GM BTL PO SCH (09:58)
[2016-06-20] MEDS: oxyCODONE HCL 5 MG TABLET PO PRN (10:15)
[2016-06-20] MEDS: ACETAMINOPHEN 325 MG TABLET (FP) PO PRN (10:16)
--- NOTE | 2016-06-20 11:07 | PN ---
Progress Note, Physician History of Present Illness: patient doing well erythema improving still there - Current Medication List Current Medications: Active Medications Acetaminophen (Tylenol -) 650 mg PO Q4H PRN PRN Reason: FEVER OR PAIN Last Admin: 06/20/16 10:16 Dose: 650 mg Docusate Sodium (Colace -) 100 mg PO BID [facility] Last Admin: 06/20/16 09:58 Dose: Not Given Enoxaparin Sodium (Lovenox -) 40 mg SQ DAILY [facility] Last Admin: 06/20/16 09:58 Dose: 40 mg Clindamycin Phosphate (Cleocin 600 Mg Premix Ivpb -) 50 mls @ 100 mls/hr IVPB Q6H-IV [facility] Last Admin: 06/20/16 09:01 Dose: 100 mls/hr Piperacillin Sod/Tazobactam Sod (Zosyn 3.375gm Ivpb (Pre-Docked)) 50 mls @ 100 mls/hr IVPB Q8H-IV [facility] PRN Reason: Protocol Last Admin: 06/20/16 09:59 Dose: 100 mls/hr Lactobacillus Acidophilus (Bacid -) 1 tab PO BID [facility] Last Admin: 06/20/16 09:58 Dose: 1 tab Non-Formulary Med ( Lumigan [Bimatoprost ] 0.01% Opth Isabelle) 1 each OU HS [facility] Last Admin: 06/19/16 22:05 Dose: 1 each Nystatin (Mycostatin Ointment -) 1 applic TP BID [facility] Last Admin: 06/20/16 09:58 Dose: 1 applic Ondansetron HCl (Zofran Injection) 4 mg IVPB Q6H PRN PRN Reason: NAUSEA Oxycodone HCl (Roxicodone -) 5 mg PO Q6H PRN PRN Reason: PAIN Last Admin: 06/20/16 10:15 Dose: 5 mg Polyethylene Glycol (Miralax (For Daily Use) -) 17 gm PO DAILY [facility] Last Admin: 06/20/16 09:58 Dose: Not Given Ranitidine HCl (Zantac -) 150 mg PO BID [facility] Last Admin: 06/19/16 22:02 Dose: 150 mg - Objective Vital Signs: Vital Signs Temperature 100.3 F H 06/20/16 06:00 Pulse Rate 84 06/20/16 06:00 Respiratory Rate 18 06/20/16 06:00 Blood Pressure 111/51 06/20/16 06:00 O2 Sat by Pulse Oximetry (%) 96 06/19/16 21:00 Constitutional: Yes: No Distress, Calm Cardiovascular: Yes: Regular Rate and Rhythm Respiratory: Yes: Regular, CTA Bilaterally Gastrointestinal: Yes: Normal Bowel Sounds, Soft Musculoskeletal: Yes: Other Extremities: Yes: Erythema (improving) Neurological: Yes: Alert, Oriented Psychiatric: Yes: Alert Labs: CBC, BMP 06/19/16 07:40 06/19/16 07:40 INR, PTT INR 1.36 (0.82-1.09) H 06/11/16 17:12 Assessment/Plan Problem List - Problems (1) Sepsis Code(s): A41.9 - SEPSIS, UNSPECIFIED ORGANISM (2) Cellulitis of leg without foot, right Code(s): L03.115 - CELLULITIS OF RIGHT LOWER LIMB bacteremia gram positive onchomycosis plan elevation of the leg erythema improving duplex result noted will stop clinda and see how the erythema looks
[2016-06-20] MEDS: RANITIDINE HCL 150 MG TABLET (FP) PO SCH ×2 (11:56→21:45)
[2016-06-20] MEDS: LUMIGAN 0.01% OU SCH (21:48)
[2016-06-20] MEDS: OPTH OU SCH (21:48)
[2016-06-21] MEDS: PIPERACILLIN/TAZOB 3.375 GM 50 ML IVPB SCH ×3 (01:20→18:08)
[2016-06-21] MEDS: oxyCODONE HCL 5 MG TABLET PO PRN ×2 (02:58→11:21)
[2016-06-21 07:59] LABS: EOSINOPHIL 1.5 % (0-4.5); MCH 31.2 pg (25.7-33.7); MCHC 34.3 g/dl (32.0-36.0); MEAN CELL VOLUME 91.1 fl (80-96); NEUTROPHILS 63.9 % (42.8-82.8); PLATELET COUNT 489 K/MM3 (134-434); RDW 13.2 % (11.6-15.6); WHITE BLOOD COUNT 6.8 K/mm3 (4.0-10.0)
[2016-06-21 08:46] LABS: ALBUMIN 2.2 g/dl (3.4-5.0); BILIRUBIN,TOTAL 0.3 mg/dL (0.2-1.0); CALCIUM 8.3 mg/dL (8.5-10.1); CREATININE 0.9 mg/dL (0.55-1.02); TOT PROT 6.2 g/dl (6.4-8.2)
[2016-06-21] MEDS: LACTOBACILLUS ACIDOPHILUS 1 EACH TAB (FP) PO SCH ×2 (10:27→22:02)
[2016-06-21] MEDS: ENOXAPARIN NA (PORCINE) 40 MG/0.4 ML DISP.SYRIN SQ SCH (10:27)
[2016-06-21] MEDS: DOCUSATE SODIUM 100 MG CAPSULE (FP) PO SCH ×2 (10:27→22:02)
[2016-06-21] MEDS: POLYETHYLENE GLYCOL 3350 119 GM BTL PO SCH (10:27)
[2016-06-21] MEDS: RANITIDINE HCL 150 MG TABLET (FP) PO SCH ×2 (10:27→22:02)
[2016-06-21] MEDS: NYSTATIN 100000 UNIT/GM TOPICAL OINTMENT 15 GM TUBE TP SCH ×2 (10:28→22:02)
--- NOTE | 2016-06-21 12:16 | PN ---
Progress Note, Physician Chief Complaint: Ms Wells complains of chronic pain in the foot. No cp, sob, n/v. - Current Medication List Current Medications: Active Medications Acetaminophen (Tylenol -) 650 mg PO Q4H PRN PRN Reason: FEVER OR PAIN Last Admin: 06/20/16 10:16 Dose: 650 mg Docusate Sodium (Colace -) 100 mg PO BID [facility] Last Admin: 06/21/16 10:27 Dose: Not Given Enoxaparin Sodium (Lovenox -) 40 mg SQ DAILY [facility] Last Admin: 06/21/16 10:27 Dose: 40 mg Piperacillin Sod/Tazobactam Sod (Zosyn 3.375gm Ivpb (Pre-Docked)) 50 mls @ 100 mls/hr IVPB Q8H-IV DI PRN Reason: Protocol Last Admin: 06/21/16 11:21 Dose: 100 mls/hr Lactobacillus Acidophilus (Bacid -) 1 tab PO BID [facility] Last Admin: 06/21/16 10:27 Dose: 1 tab Non-Formulary Med ( Lumigan [Bimatoprost ] 0.01% Opth Isabelle) 1 each OU HS [facility] Last Admin: 06/20/16 21:48 Dose: 1 each Nystatin (Mycostatin Ointment -) 1 applic TP BID [facility] Last Admin: 06/21/16 10:28 Dose: 1 applic Ondansetron HCl (Zofran Injection) 4 mg IVPB Q6H PRN PRN Reason: NAUSEA Oxycodone HCl (Roxicodone -) 5 mg PO Q6H PRN PRN Reason: PAIN Last Admin: 06/21/16 11:21 Dose: 5 mg Polyethylene Glycol (Miralax (For Daily Use) -) 17 gm PO DAILY [facility] Last Admin: 06/21/16 10:27 Dose: Not Given Ranitidine HCl (Zantac -) 150 mg PO BID [facility] Last Admin: 06/21/16 10:27 Dose: 150 mg - Objective Vital Signs: Vital Signs Temperature 98.2 F 06/21/16 08:54 Pulse Rate 77 06/21/16 08:54 Respiratory Rate 18 06/21/16 08:54 Blood Pressure 101/56 06/21/16 08:54 O2 Sat by Pulse Oximetry (%) 98 06/20/16 21:00 Constitutional: Yes: Well Nourished, No Distress, Calm Cardiovascular: Yes: Regular Rate and Rhythm. No: Gallop, Murmur, Rub Respiratory: Yes: Regular, CTA Bilaterally. No: Rales, Rhonchi, Wheezes Extremities: Yes: Erythema (improved from Monday) Edema: No Labs: CBC, BMP 06/21/16 06:20 06/21/16 06:20 INR, PTT INR 1.36 (0.82-1.09) H 06/11/16 17:12 Problem List - Problems (1) Sepsis Code(s): A41.9 - SEPSIS, UNSPECIFIED ORGANISM (2) Cellulitis of leg without foot, right Code(s): L03.115 - CELLULITIS OF RIGHT LOWER LIMB Assessment/Plan (1) Sepsis Assessment/Plan: -repeat blood cultures negative -secondary to cellulitis -ID following -continue zosyn per ID recommendations Code(s): A41.9 - SEPSIS, UNSPECIFIED ORGANISM (2) Cellulitis of leg without foot, right Assessment/Plan: -clindamycin stopped -continue zosyn -appears much improved since Monday but still with erythema -d/w ID about antibiotic duration Code(s): L03.115 - CELLULITIS OF RIGHT LOWER LIMB (3) GERD -zantac 150mg bid (4) Arthritis -chronic -continue pain control -suspect will need SNF for PT
--- NOTE | 2016-06-21 12:48 | PN ---
Progress Note, Physician History of Present Illness: patient doing well leg with pain still erythema still present but much better pain still present - Current Medication List Current Medications: Active Medications Acetaminophen (Tylenol -) 650 mg PO Q4H PRN PRN Reason: FEVER OR PAIN Last Admin: 06/20/16 10:16 Dose: 650 mg Docusate Sodium (Colace -) 100 mg PO BID [facility] Last Admin: 06/21/16 10:27 Dose: Not Given Enoxaparin Sodium (Lovenox -) 40 mg SQ DAILY [facility] Last Admin: 06/21/16 10:27 Dose: 40 mg Piperacillin Sod/Tazobactam Sod (Zosyn 3.375gm Ivpb (Pre-Docked)) 50 mls @ 100 mls/hr IVPB Q8H-IV [facility] PRN Reason: Protocol Last Admin: 06/21/16 11:21 Dose: 100 mls/hr Lactobacillus Acidophilus (Bacid -) 1 tab PO BID [facility] Last Admin: 06/21/16 10:27 Dose: 1 tab Non-Formulary Med ( Lumigan [Bimatoprost ] 0.01% Opth Isabelle) 1 each OU HS [facility] Last Admin: 06/20/16 21:48 Dose: 1 each Nystatin (Mycostatin Ointment -) 1 applic TP BID [facility] Last Admin: 06/21/16 10:28 Dose: 1 applic Ondansetron HCl (Zofran Injection) 4 mg IVPB Q6H PRN PRN Reason: NAUSEA Oxycodone HCl (Roxicodone -) 5 mg PO Q6H PRN PRN Reason: PAIN Last Admin: 06/21/16 11:21 Dose: 5 mg Polyethylene Glycol (Miralax (For Daily Use) -) 17 gm PO DAILY [facility] Last Admin: 06/21/16 10:27 Dose: Not Given Ranitidine HCl (Zantac -) 150 mg PO BID [facility] Last Admin: 06/21/16 10:27 Dose: 150 mg - Objective Vital Signs: Vital Signs Temperature 98.2 F 06/21/16 08:54 Pulse Rate 77 06/21/16 08:54 Respiratory Rate 18 06/21/16 08:54 Blood Pressure 101/56 06/21/16 08:54 O2 Sat by Pulse Oximetry (%) 98 06/20/16 21:00 Constitutional: Yes: No Distress, Calm Cardiovascular: Yes: Regular Rate and Rhythm Respiratory: Yes: Regular, CTA Bilaterally Gastrointestinal: Yes: Normal Bowel Sounds, Soft Musculoskeletal: Yes: Other Extremities: Yes: Other (erythema better still has erythema) Integumentary: Yes: Erythema Neurological: Yes: Alert, Oriented Psychiatric: Yes: Alert Labs: CBC, BMP 06/21/16 06:20 06/21/16 06:20 INR, PTT INR 1.36 (0.82-1.09) H 06/11/16 17:12 Assessment/Plan Problem List - Problems (1) Sepsis Code(s): A41.9 - SEPSIS, UNSPECIFIED ORGANISM (2) Cellulitis of leg without foot, right Code(s): L03.115 - CELLULITIS OF RIGHT LOWER LIMB bacteremia gram positive onchomycosis plan elevation of the leg erythema improving duplex result noted will try to switch to oral on
[2016-06-21] MEDS: OPTH OU SCH (22:03)
[2016-06-21] MEDS: LUMIGAN 0.01% OU SCH (22:03)
[2016-06-22] MEDS: PIPERACILLIN/TAZOB 3.375 GM 50 ML IVPB SCH ×2 (01:40→10:29)
[2016-06-22] MEDS: DOCUSATE SODIUM 100 MG CAPSULE (FP) PO SCH ×3 (10:29→21:20)
[2016-06-22] MEDS: LACTOBACILLUS ACIDOPHILUS 1 EACH TAB (FP) PO SCH ×2 (10:29→21:20)
[2016-06-22] MEDS: RANITIDINE HCL 150 MG TABLET (FP) PO SCH ×2 (10:29→21:20)
[2016-06-22] MEDS: ENOXAPARIN NA (PORCINE) 40 MG/0.4 ML DISP.SYRIN SQ SCH ×2 (10:29→10:34)
[2016-06-22] MEDS: NYSTATIN 100000 UNIT/GM TOPICAL OINTMENT 15 GM TUBE TP SCH ×2 (10:29→21:21)
[2016-06-22] MEDS: POLYETHYLENE GLYCOL 3350 119 GM BTL PO SCH (10:30)
[2016-06-22] MEDS: ACETAMINOPHEN 325 MG TABLET (FP) PO PRN (11:24)
--- NOTE | 2016-06-22 14:03 | PN ---
Progress Note, Physician History of Present Illness: patient doing well erythema much better - Current Medication List Current Medications: Active Medications Acetaminophen (Tylenol -) 650 mg PO Q4H PRN PRN Reason: FEVER OR PAIN Last Admin: 06/22/16 11:24 Dose: 650 mg Amoxicillin/Clavulanate Potassium (Augmentin - 500mg Tablet) 1 tab PO BID@0800, 1730 [facility] Docusate Sodium (Colace -) 100 mg PO BID [facility] Last Admin: 06/22/16 10:33 Dose: Not Given Enoxaparin Sodium (Lovenox -) 40 mg SQ DAILY [facility] Last Admin: 06/22/16 10:34 Dose: Not Given Lactobacillus Acidophilus (Bacid -) 1 tab PO BID [facility] Last Admin: 06/22/16 10:29 Dose: 1 tab Non-Formulary Med ( Lumigan [Bimatoprost ] 0.01% Opth Isabelle) 1 each OU HS [facility] Last Admin: 06/21/16 22:03 Dose: 1 each Nystatin (Mycostatin Ointment -) 1 applic TP BID [facility] Last Admin: 06/22/16 10:29 Dose: 1 applic Ondansetron HCl (Zofran Injection) 4 mg IVPB Q6H PRN PRN Reason: NAUSEA Oxycodone HCl (Roxicodone -) 5 mg PO Q6H PRN PRN Reason: PAIN Last Admin: 06/21/16 11:21 Dose: 5 mg Polyethylene Glycol (Miralax (For Daily Use) -) 17 gm PO DAILY [facility] Last Admin: 06/22/16 10:30 Dose: Not Given Ranitidine HCl (Zantac -) 150 mg PO BID [facility] Last Admin: 06/22/16 10:29 Dose: 150 mg - Objective Vital Signs: Vital Signs Temperature 98.6 F 06/22/16 06:00 Pulse Rate 77 06/22/16 06:00 Respiratory Rate 20 06/22/16 06:00 Blood Pressure 103/51 06/22/16 06:00 O2 Sat by Pulse Oximetry (%) 98 06/21/16 21:00 Constitutional: Yes: No Distress, Calm HENT: Yes: Atraumatic, Normocephalic Neck: Yes: Supple Cardiovascular: Yes: Regular Rate and Rhythm Respiratory: Yes: Regular, CTA Bilaterally Gastrointestinal: Yes: Normal Bowel Sounds, Soft Musculoskeletal: Yes: Other Extremities: Yes: Erythema (improved) Integumentary: Yes: Erythema Wound/Incision: Yes: Well Approximated Psychiatric: Yes: Alert Labs: CBC, BMP 06/21/16 06:20 06/21/16 06:20 INR, PTT INR 1.36 (0.82-1.09) H 06/11/16 17:12 Assessment/Plan Problem List - Problems (1) Sepsis Code(s): A41.9 - SEPSIS, UNSPECIFIED ORGANISM (2) Cellulitis of leg without foot, right Code(s): L03.115 - CELLULITIS OF RIGHT LOWER LIMB bacteremia gram positive onchomycosis plan elevation of the leg erythema improving will stop iv zosyn will switch to oral augmentin
[2016-06-22] MEDS: oxyCODONE HCL 5 MG TABLET PO PRN (14:39)
--- NOTE | 2016-06-22 16:52 | PN ---
Progress Note, Physician Chief Complaint: Ms Wells still with complaints of foot pain. No cp, sob, n/v. - Current Medication List Current Medications: Active Medications Acetaminophen (Tylenol -) 650 mg PO Q4H PRN PRN Reason: FEVER OR PAIN Last Admin: 06/22/16 11:24 Dose: 650 mg Amoxicillin/Clavulanate Potassium (Augmentin - 500mg Tablet) 1 tab PO BID@0800, 1730 [facility] Docusate Sodium (Colace -) 100 mg PO BID [facility] Last Admin: 06/22/16 10:33 Dose: Not Given Enoxaparin Sodium (Lovenox -) 40 mg SQ DAILY [facility] Last Admin: 06/22/16 10:34 Dose: Not Given Lactobacillus Acidophilus (Bacid -) 1 tab PO BID [facility] Last Admin: 06/22/16 10:29 Dose: 1 tab Non-Formulary Med ( Lumigan [Bimatoprost ] 0.01% Opth Isabelle) 1 each OU HS [facility] Last Admin: 06/21/16 22:03 Dose: 1 each Nystatin (Mycostatin Ointment -) 1 applic TP BID [facility] Last Admin: 06/22/16 10:29 Dose: 1 applic Ondansetron HCl (Zofran Injection) 4 mg IVPB Q6H PRN PRN Reason: NAUSEA Oxycodone HCl (Roxicodone -) 5 mg PO Q6H PRN PRN Reason: PAIN Last Admin: 06/22/16 14:39 Dose: 5 mg Polyethylene Glycol (Miralax (For Daily Use) -) 17 gm PO DAILY [facility] Last Admin: 06/22/16 10:30 Dose: Not Given Ranitidine HCl (Zantac -) 150 mg PO BID [facility] Last Admin: 06/22/16 10:29 Dose: 150 mg - Objective Vital Signs: Vital Signs Temperature 98.2 F 06/22/16 15:43 Pulse Rate 73 06/22/16 15:43 Respiratory Rate 18 06/22/16 15:43 Blood Pressure 98/50 06/22/16 15:43 O2 Sat by Pulse Oximetry (%) 98 06/22/16 09:00 Constitutional: Yes: Well Nourished, No Distress, Calm Cardiovascular: Yes: Regular Rate and Rhythm. No: Gallop, Murmur, Rub Respiratory: Yes: Regular, CTA Bilaterally. No: Rales, Rhonchi, Wheezes Gastrointestinal: Yes: Normal Bowel Sounds, Soft. No: Distention, Tenderness Extremities: Yes: Erythema (almost resolved) Edema: No Labs: CBC, BMP 06/21/16 06:20 06/21/16 06:20 INR, PTT INR 1.36 (0.82-1.09) H 06/11/16 17:12 Problem List - Problems (1) Sepsis Code(s): A41.9 - SEPSIS, UNSPECIFIED ORGANISM (2) Cellulitis of leg without foot, right Code(s): L03.115 - CELLULITIS OF RIGHT LOWER LIMB Assessment/Plan (1) Sepsis Assessment/Plan: -appreciate ID assistance -resolved Code(s): A41.9 - SEPSIS, UNSPECIFIED ORGANISM (2) Cellulitis of leg without foot, right Assessment/Plan: -erythema resolved -changed to augmentin Code(s): L03.115 - CELLULITIS OF RIGHT LOWER LIMB (3) GERD -zantac 150mg bid (4) Arthritis -patient still complains of severe pain -reviewed x-ray, recommended MRI if pain not improved -will obtain MRI to further evaluate -will need SNF placement
[2016-06-22] MEDS: AMOX TR/POT CLAV 500MG/125MG TABLETS (FP) PO SCH (17:57)
[2016-06-22] MEDS: OPTH OU SCH (21:22)
[2016-06-22] MEDS: LUMIGAN 0.01% OU SCH (21:22)
[2016-06-23] MEDS: ACETAMINOPHEN 325 MG TABLET (FP) PO PRN (08:20)
[2016-06-23] MEDS: AMOX TR/POT CLAV 500MG/125MG TABLETS (FP) PO SCH ×2 (08:20→16:58)
[2016-06-23 08:31] LABS: BASOPHIL 1.3 % (0-2.0); EOSINOPHIL 2.9 % (0-4.5); MCH 31.1 pg (25.7-33.7); MCHC 33.8 g/dl (32.0-36.0); MEAN CELL VOLUME 91.9 fl (80-96); MEAN PLT VOLUME 6.6 fl (7.5-11.1); NEUTROPHILS 62.3 % (42.8-82.8); PLATELET COUNT 573 K/MM3 (134-434); RDW 13.2 % (11.6-15.6); WHITE BLOOD COUNT 4.7 K/mm3 (4.0-10.0)
[2016-06-23 08:59] LABS: CALCIUM 8.4 mg/dL (8.5-10.1); MAGNESIUM 2.4 mg/dL (1.8-2.4)
[2016-06-23 09:01] LABS: CREATININE 0.7 mg/dL (0.55-1.02)
[2016-06-23] MEDS: LACTOBACILLUS ACIDOPHILUS 1 EACH TAB (FP) PO SCH ×2 (10:02→21:34)
[2016-06-23] MEDS: POLYETHYLENE GLYCOL 3350 119 GM BTL PO SCH (10:02)
[2016-06-23] MEDS: NYSTATIN 100000 UNIT/GM TOPICAL OINTMENT 15 GM TUBE TP SCH ×2 (10:02→21:34)
[2016-06-23] MEDS: ENOXAPARIN NA (PORCINE) 40 MG/0.4 ML DISP.SYRIN SQ SCH (10:02)
[2016-06-23] MEDS: RANITIDINE HCL 150 MG TABLET (FP) PO SCH ×2 (10:02→21:34)
[2016-06-23] MEDS: DOCUSATE SODIUM 100 MG CAPSULE (FP) PO SCH ×2 (10:02→21:34)
--- NOTE | 2016-06-23 10:26 | PN ---
Progress Note, Physician Chief Complaint: Ms Wells is still having pain in her R foot, unchanged. No cp, sob, n/v. - Current Medication List Current Medications: Active Medications Acetaminophen (Tylenol -) 650 mg PO Q4H PRN PRN Reason: FEVER OR PAIN Last Admin: 06/23/16 08:20 Dose: 650 mg Amoxicillin/Clavulanate Potassium (Augmentin - 500mg Tablet) 1 tab PO BID@0800, 1730 [facility] Last Admin: 06/23/16 08:20 Dose: 1 tab Docusate Sodium (Colace -) 100 mg PO BID [facility] Last Admin: 06/23/16 10:02 Dose: 100 mg Enoxaparin Sodium (Lovenox -) 40 mg SQ DAILY [facility] Last Admin: 06/23/16 10:02 Dose: Not Given Lactobacillus Acidophilus (Bacid -) 1 tab PO BID [facility] Last Admin: 06/23/16 10:02 Dose: 1 tab Non-Formulary Med ( Lumigan [Bimatoprost ] 0.01% Opth Isabelle) 1 each OU HS [facility] Last Admin: 06/22/16 21:22 Dose: 1 each Nystatin (Mycostatin Ointment -) 1 applic TP BID [facility] Last Admin: 06/23/16 10:02 Dose: 1 applic Ondansetron HCl (Zofran Injection) 4 mg IVPB Q6H PRN PRN Reason: NAUSEA Oxycodone HCl (Roxicodone -) 5 mg PO Q6H PRN PRN Reason: PAIN Last Admin: 06/22/16 14:39 Dose: 5 mg Polyethylene Glycol (Miralax (For Daily Use) -) 17 gm PO DAILY [facility] Last Admin: 06/23/16 10:02 Dose: Not Given Ranitidine HCl (Zantac -) 150 mg PO BID [facility] Last Admin: 06/23/16 10:02 Dose: 150 mg - Objective Vital Signs: Vital Signs Temperature 99.1 F 06/23/16 06:00 Pulse Rate 73 06/23/16 06:00 Respiratory Rate 20 06/23/16 06:00 Blood Pressure 108/67 06/23/16 06:00 O2 Sat by Pulse Oximetry (%) 98 06/22/16 21:00 Constitutional: Yes: Well Nourished, No Distress, Calm Cardiovascular: Yes: Regular Rate and Rhythm. No: Gallop, Murmur, Rub Respiratory: Yes: Regular, CTA Bilaterally. No: Rales, Rhonchi, Wheezes Gastrointestinal: Yes: Normal Bowel Sounds, Soft. No: Distention, Tenderness Extremities: Yes: WNL. No: Erythema Edema: No Labs: CBC, BMP 06/23/16 07:00 06/23/16 07:00 INR, PTT INR 1.36 (0.82-1.09) H 06/11/16 17:12 Problem List - Problems (1) Sepsis Code(s): A41.9 - SEPSIS, UNSPECIFIED ORGANISM (2) Cellulitis of leg without foot, right Code(s): L03.115 - CELLULITIS OF RIGHT LOWER LIMB Assessment/Plan (1) Sepsis Assessment/Plan: -appreciate ID assistance -resolved Code(s): A41.9 - SEPSIS, UNSPECIFIED ORGANISM (2) Cellulitis of leg without foot, right Assessment/Plan: -erythema resolved -continue augmentin Code(s): L03.115 - CELLULITIS OF RIGHT LOWER LIMB (3) GERD -zantac 150mg bid (4) Arthritis -patient still complains of severe pain -reviewed x-ray, recommended MRI if pain not improved -MRI ordered, awaiting results
--- NOTE | 2016-06-23 13:19 | PN ---
Progress Note, Physician History of Present Illness: doing well cellulitis nearly resolved continues to c/o of pain in the leg plan for mri - Current Medication List Current Medications: Active Medications Acetaminophen (Tylenol -) 650 mg PO Q4H PRN PRN Reason: FEVER OR PAIN Last Admin: 06/23/16 08:20 Dose: 650 mg Amoxicillin/Clavulanate Potassium (Augmentin - 500mg Tablet) 1 tab PO BID@0800, 1730 [facility] Last Admin: 06/23/16 08:20 Dose: 1 tab Docusate Sodium (Colace -) 100 mg PO BID [facility] Last Admin: 06/23/16 10:02 Dose: 100 mg Enoxaparin Sodium (Lovenox -) 40 mg SQ DAILY [facility] Last Admin: 06/23/16 10:02 Dose: Not Given Lactobacillus Acidophilus (Bacid -) 1 tab PO BID [facility] Last Admin: 06/23/16 10:02 Dose: 1 tab Non-Formulary Med ( Lumigan [Bimatoprost ] 0.01% Opth Isabelle) 1 each OU HS [facility] Last Admin: 06/22/16 21:22 Dose: 1 each Nystatin (Mycostatin Ointment -) 1 applic TP BID [facility] Last Admin: 06/23/16 10:02 Dose: 1 applic Ondansetron HCl (Zofran Injection) 4 mg IVPB Q6H PRN PRN Reason: NAUSEA Oxycodone HCl (Roxicodone -) 5 mg PO Q6H PRN PRN Reason: PAIN Last Admin: 06/22/16 14:39 Dose: 5 mg Polyethylene Glycol (Miralax (For Daily Use) -) 17 gm PO DAILY [facility] Last Admin: 06/23/16 10:02 Dose: Not Given Ranitidine HCl (Zantac -) 150 mg PO BID [facility] Last Admin: 06/23/16 10:02 Dose: 150 mg - Objective Vital Signs: Vital Signs Temperature 99.1 F 06/23/16 06:00 Pulse Rate 73 06/23/16 06:00 Respiratory Rate 20 06/23/16 06:00 Blood Pressure 108/67 06/23/16 06:00 O2 Sat by Pulse Oximetry (%) 98 06/22/16 21:00 Constitutional: Yes: No Distress, Calm Neck: Yes: Supple Cardiovascular: Yes: Regular Rate and Rhythm Respiratory: Yes: Regular, CTA Bilaterally Gastrointestinal: Yes: Normal Bowel Sounds, Soft Musculoskeletal: Yes: Other Extremities: Yes: Erythema (nearly resolved), Other Integumentary: Yes: Erythema Neurological: Yes: Alert, Oriented Labs: CBC, BMP 06/23/16 07:00 06/23/16 07:00 INR, PTT INR 1.36 (0.82-1.09) H 06/11/16 17:12 Assessment/Plan Problem List - Problems (1) Sepsis Code(s): A41.9 - SEPSIS, UNSPECIFIED ORGANISM (2) Cellulitis of leg without foot, right Code(s): L03.115 - CELLULITIS OF RIGHT LOWER LIMB bacteremia gram positive onchomycosis plan continue current mgmt mri will see mri findings oral treatment
[2016-06-23] MEDS: OPTH OU SCH (21:34)
[2016-06-23] MEDS: LUMIGAN 0.01% OU SCH (21:34)
[2016-06-24] MEDS: AMOX TR/POT CLAV 500MG/125MG TABLETS (FP) PO SCH ×2 (08:19→17:38)
[2016-06-24] MEDS: ACETAMINOPHEN 325 MG TABLET (FP) PO PRN (08:31)
[2016-06-24] MEDS ORDERED: PT OWN MED DRAWER 7, Y5N ONE (10:36)
[2016-06-24] MEDS: DOCUSATE SODIUM 100 MG CAPSULE (FP) PO SCH ×2 (10:38→21:48)
[2016-06-24] MEDS: POLYETHYLENE GLYCOL 3350 119 GM BTL PO SCH (10:38)
[2016-06-24] MEDS: NYSTATIN 100000 UNIT/GM TOPICAL OINTMENT 15 GM TUBE TP SCH ×2 (10:38→21:48)
[2016-06-24] MEDS: LACTOBACILLUS ACIDOPHILUS 1 EACH TAB (FP) PO SCH ×2 (10:38→21:48)
[2016-06-24] MEDS: ENOXAPARIN NA (PORCINE) 40 MG/0.4 ML DISP.SYRIN SQ SCH (10:38)
[2016-06-24] MEDS: RANITIDINE HCL 150 MG TABLET (FP) PO SCH ×2 (10:38→21:48)
--- NOTE | 2016-06-24 14:07 | PN ---
Progress Note, Physician Chief Complaint: Ms Wells with unchanged R foot pain. No cp, sob, n/v. - Current Medication List Current Medications: Active Medications Acetaminophen (Tylenol -) 650 mg PO Q4H PRN PRN Reason: FEVER OR PAIN Last Admin: 06/24/16 08:31 Dose: 650 mg Amoxicillin/Clavulanate Potassium (Augmentin - 500mg Tablet) 1 tab PO BID@0800, 1730 [facility] Last Admin: 06/24/16 08:19 Dose: 1 tab Docusate Sodium (Colace -) 100 mg PO BID [facility] Last Admin: 06/24/16 10:38 Dose: 100 mg Enoxaparin Sodium (Lovenox -) 40 mg SQ DAILY [facility] Last Admin: 06/24/16 10:38 Dose: Not Given Lactobacillus Acidophilus (Bacid -) 1 tab PO BID [facility] Last Admin: 06/24/16 10:38 Dose: 1 tab Non-Formulary Med ( Lumigan [Bimatoprost ] 0.01% Opth Isabelle) 1 each OU HS [facility] Last Admin: 06/23/16 21:34 Dose: 1 each Nystatin (Mycostatin Ointment -) 1 applic TP BID [facility] Last Admin: 06/24/16 10:38 Dose: 1 applic Ondansetron HCl (Zofran Injection) 4 mg IVPB Q6H PRN PRN Reason: NAUSEA Oxycodone HCl (Roxicodone -) 5 mg PO Q6H PRN PRN Reason: PAIN Last Admin: 06/22/16 14:39 Dose: 5 mg Polyethylene Glycol (Miralax (For Daily Use) -) 17 gm PO DAILY [facility] Last Admin: 06/24/16 10:38 Dose: Not Given Ranitidine HCl (Zantac -) 150 mg PO BID [facility] Last Admin: 06/24/16 10:38 Dose: 150 mg - Objective Vital Signs: Vital Signs Temperature 98.5 F 06/24/16 09:08 Pulse Rate 78 06/24/16 09:08 Respiratory Rate 20 06/24/16 09:08 Blood Pressure 108/60 06/24/16 09:08 O2 Sat by Pulse Oximetry (%) 100 06/24/16 09:00 Constitutional: Yes: Well Nourished, No Distress, Calm Cardiovascular: Yes: Regular Rate and Rhythm. No: Gallop, Murmur, Rub Respiratory: Yes: Regular, CTA Bilaterally. No: Rales, Rhonchi, Wheezes Gastrointestinal: Yes: Normal Bowel Sounds, Soft. No: Distention, Tenderness Extremities: Yes: WNL Edema: No Labs: CBC, BMP 06/23/16 07:00 06/23/16 07:00 INR, PTT INR 1.36 (0.82-1.09) H 06/11/16 17:12 Problem List - Problems (1) Sepsis Code(s): A41.9 - SEPSIS, UNSPECIFIED ORGANISM (2) Cellulitis of leg without foot, right Code(s): L03.115 - CELLULITIS OF RIGHT LOWER LIMB Assessment/Plan (1) Sepsis Assessment/Plan: -appreciate ID assistance -resolved Code(s): A41.9 - SEPSIS, UNSPECIFIED ORGANISM (2) Cellulitis of leg without foot, right Assessment/Plan: -erythema resolved -continue augmentin Code(s): L03.115 - CELLULITIS OF RIGHT LOWER LIMB (3) GERD -zantac 150mg bid (4) Arthritis -MRI still pending -if normal, can discharge -may need further evaluation if abnormal
--- NOTE | 2016-06-24 15:16 | PN ---
Progress Note, Physician History of Present Illness: doing well cellulitis nearly resolved awaiting mri - Current Medication List Current Medications: Active Medications Acetaminophen (Tylenol -) 650 mg PO Q4H PRN PRN Reason: FEVER OR PAIN Last Admin: 06/24/16 08:31 Dose: 650 mg Amoxicillin/Clavulanate Potassium (Augmentin - 500mg Tablet) 1 tab PO BID@0800, 1730 [facility] Last Admin: 06/24/16 08:19 Dose: 1 tab Docusate Sodium (Colace -) 100 mg PO BID [facility] Last Admin: 06/24/16 10:38 Dose: 100 mg Enoxaparin Sodium (Lovenox -) 40 mg SQ DAILY [facility] Last Admin: 06/24/16 10:38 Dose: Not Given Lactobacillus Acidophilus (Bacid -) 1 tab PO BID [facility] Last Admin: 06/24/16 10:38 Dose: 1 tab Non-Formulary Med ( Lumigan [Bimatoprost ] 0.01% Opth Isabelle) 1 each OU HS [facility] Last Admin: 06/23/16 21:34 Dose: 1 each Nystatin (Mycostatin Ointment -) 1 applic TP BID [facility] Last Admin: 06/24/16 10:38 Dose: 1 applic Ondansetron HCl (Zofran Injection) 4 mg IVPB Q6H PRN PRN Reason: NAUSEA Oxycodone HCl (Roxicodone -) 5 mg PO Q6H PRN PRN Reason: PAIN Last Admin: 06/22/16 14:39 Dose: 5 mg Polyethylene Glycol (Miralax (For Daily Use) -) 17 gm PO DAILY [facility] Last Admin: 06/24/16 10:38 Dose: Not Given Ranitidine HCl (Zantac -) 150 mg PO BID [facility] Last Admin: 06/24/16 10:38 Dose: 150 mg - Objective Vital Signs: Vital Signs Temperature 98.5 F 06/24/16 14:45 Pulse Rate 78 06/24/16 14:45 Respiratory Rate 20 06/24/16 14:45 Blood Pressure 108/60 06/24/16 09:08 O2 Sat by Pulse Oximetry (%) 100 06/24/16 09:00 Constitutional: Yes: No Distress, Calm Cardiovascular: Yes: Regular Rate and Rhythm Respiratory: Yes: Regular, CTA Bilaterally Gastrointestinal: Yes: Normal Bowel Sounds, Soft Musculoskeletal: Yes: Other Extremities: Yes: Erythema (much better) Integumentary: Yes: Erythema (much better) Neurological: Yes: Alert, Oriented Psychiatric: Yes: Alert Labs: CBC, BMP 06/23/16 07:00 06/23/16 07:00 INR, PTT INR 1.36 (0.82-1.09) H 06/11/16 17:12 Assessment/Plan Problem List - Problems (1) Sepsis Code(s): A41.9 - SEPSIS, UNSPECIFIED ORGANISM (2) Cellulitis of leg without foot, right Code(s): L03.115 - CELLULITIS OF RIGHT LOWER LIMB bacteremia gram positive onchomycosis plan continue current mgmt await for mri
[2016-06-24] MEDS: OPTH OU SCH (21:48)
[2016-06-24] MEDS: LUMIGAN 0.01% OU SCH (21:48)
[2016-06-25 07:41] LABS: BASOPHIL 2.2 % (0-2.0); EOSINOPHIL 2.1 % (0-4.5); MCHC 33.9 g/dl (32.0-36.0); MEAN CELL VOLUME 91.4 fl (80-96); MEAN PLT VOLUME 6.5 fl (7.5-11.1); NEUTROPHILS 64.9 % (42.8-82.8); PLATELET COUNT 646 K/MM3 (134-434); RDW 13.3 % (11.6-15.6); WHITE BLOOD COUNT 4.8 K/mm3 (4.0-10.0)
[2016-06-25 08:06] LABS: CALCIUM 8.4 mg/dL (8.5-10.1); CREATININE 0.8 mg/dL (0.55-1.02); MAGNESIUM 2.3 mg/dL (1.8-2.4); PHOSPHOROUS 3.2 mg/dL (2.5-4.9)
--- NOTE | 2016-06-25 08:36 | PN ---
Progress Note (short form) - Note Progress Note: Patient seen and examined. Chart reviewed at length, since my notes from last weekend. Patient currently sitting up in bed, alert and appropriate. RLE/foot discomfort persists with pain in lower leg area when bearing weight. MRI of RLE /foot ordered and pending for later this afternoon. Her greatest concern remains her generalized weakness and right foot pain which limit her overall strength, ambulatory capacity and independence. Patient reassured. Labs and health analytics consultant notes reviewed. Leg pain previously prompted Vascular Ultrasound assessment revealing no DVT, but popliteal area cystic structure with internal debris. Erythema has decreased in RLE and patient is currently on oral antibiotics. Selected Entries 06/24/16 06/24/16 21:00 22:00 Temperature 99 F Pulse Rate 78 Respiratory 20 Rate Blood Pressure 110/60 O2 Sat by Pulse 100 Oximetry (%) Oxygen Delivery Room Air Method Laboratory Tests 06/25/16 06:00 WBC 4.8 Hgb 10.8 Hct 31.8 L Plt Count 646 H Chest Clear Cor RRR Abd Soft non-tender Ext Faded erythema RLE with further overall improvement No edema Neuro No new focal deficits Assessment and Plan Septicemia B-hemolytic strep in initial blood cultures On oral Rx Cellulitis RLE Completed Rx with Zosyn and Clindamycin as per Dr Hurtado Currently oral Rx Anemia 10.7/31.5>>10.8/32.2>>10.8/31.8 Monitor Check platelet count 646K Thombocytosis Possible acute phase reaction Monitor AGUSTINA Currently inactive Device at home not working well Will look into getting a new mask Currently stable Fever Tmax 99 Right foot pain Patient feels she would be able to transfer OOB to [facility] and back on her own, but admits it would be a difficult struggle MRI pending Will ask for orthopedic assessment to help in further therapy and decisions Continue current Rx Will need ongoing PT for ambulation
[2016-06-25] MEDS: LACTOBACILLUS ACIDOPHILUS 1 EACH TAB (FP) PO SCH ×2 (09:01→21:42)
[2016-06-25] MEDS: RANITIDINE HCL 150 MG TABLET (FP) PO SCH ×2 (09:01→21:42)
[2016-06-25] MEDS: POLYETHYLENE GLYCOL 3350 119 GM BTL PO SCH (09:01)
[2016-06-25] MEDS: DOCUSATE SODIUM 100 MG CAPSULE (FP) PO SCH ×2 (09:01→21:45)
[2016-06-25] MEDS: AMOX TR/POT CLAV 500MG/125MG TABLETS (FP) PO SCH ×2 (09:01→16:47)
[2016-06-25] MEDS: NYSTATIN 100000 UNIT/GM TOPICAL OINTMENT 15 GM TUBE TP SCH ×2 (09:02→21:42)
[2016-06-25] MEDS: ENOXAPARIN NA (PORCINE) 40 MG/0.4 ML DISP.SYRIN SQ SCH ×2 (09:02→09:04)
--- NOTE | 2016-06-25 14:18 | PN ---
Progress Note, Physician History of Present Illness: patient doing well erythema nearly resolved still waiting for mri - Current Medication List Current Medications: Active Medications Acetaminophen (Tylenol -) 650 mg PO Q4H PRN PRN Reason: FEVER OR PAIN Last Admin: 06/24/16 08:31 Dose: 650 mg Amoxicillin/Clavulanate Potassium (Augmentin - 500mg Tablet) 1 tab PO BID@0800, 1730 [facility] Last Admin: 06/25/16 09:01 Dose: 1 tab Docusate Sodium (Colace -) 100 mg PO BID [facility] Last Admin: 06/25/16 09:01 Dose: 100 mg Enoxaparin Sodium (Lovenox -) 40 mg SQ DAILY [facility] Last Admin: 06/25/16 09:04 Dose: Not Given Lactobacillus Acidophilus (Bacid -) 1 tab PO BID [facility] Last Admin: 06/25/16 09:01 Dose: 1 tab Non-Formulary Med ( Lumigan [Bimatoprost ] 0.01% Opth Isabelle) 1 each OU HS [facility] Last Admin: 06/24/16 21:48 Dose: 1 each Nystatin (Mycostatin Ointment -) 1 applic TP BID [facility] Last Admin: 06/25/16 09:02 Dose: 1 applic Ondansetron HCl (Zofran Injection) 4 mg IVPB Q6H PRN PRN Reason: NAUSEA Polyethylene Glycol (Miralax (For Daily Use) -) 17 gm PO DAILY [facility] Last Admin: 06/25/16 09:01 Dose: 17 grams Ranitidine HCl (Zantac -) 150 mg PO BID [facility] Last Admin: 06/25/16 09:01 Dose: 150 mg - Objective Vital Signs: Vital Signs Temperature 98.9 F 06/25/16 09:00 Pulse Rate 84 06/25/16 09:00 Respiratory Rate 20 06/25/16 09:00 Blood Pressure 109/57 06/25/16 09:00 O2 Sat by Pulse Oximetry (%) 100 06/25/16 09:00 Constitutional: Yes: No Distress, Calm Cardiovascular: Yes: Regular Rate and Rhythm Respiratory: Yes: Regular, CTA Bilaterally Gastrointestinal: Yes: Normal Bowel Sounds, Soft Neurological: Yes: Alert, Oriented Psychiatric: Yes: Alert Labs: CBC, BMP 06/25/16 06:00 06/25/16 06:00 INR, PTT INR 1.36 (0.82-1.09) H 06/11/16 17:12 Assessment/Plan Problem List - Problems (1) Sepsis Code(s): A41.9 - SEPSIS, UNSPECIFIED ORGANISM (2) Cellulitis of leg without foot, right Code(s): L03.115 - CELLULITIS OF RIGHT LOWER LIMB bacteremia gram positive onchomycosis plan continue current mgmt await for mri once we have mri will decide
[2016-06-25] MEDS: ACETAMINOPHEN 325 MG TABLET (FP) PO PRN (14:59)
[2016-06-25] MEDS: OPTH OU SCH (21:45)
[2016-06-25] MEDS: LUMIGAN 0.01% OU SCH (21:45)
[2016-06-26] MEDS: AMOX TR/POT CLAV 500MG/125MG TABLETS (FP) PO SCH ×2 (08:30→17:58)
--- NOTE | 2016-06-26 08:37 | PN ---
Progress Note (short form) - Note Progress Note: Patient seen and examined. Chart reviewed. Patient currently sitting up in bed , alert and appropriate. RLE/foot discomfort persists with pain in lower leg area when bearing weight. MRI of RLE/foot completed with evidence of degenerative arthritis and possible tendonitis. See official report Orthopedic input pending. Her greatest concern remains her generalized weakness and right foot pain which limit her overall strength, ambulatory capacity and independence. Patient reassured. Labs and admissions consultant notes reviewed. Leg pain previously prompted Vascular Ultrasound assessment revealing no DVT, but popliteal area cystic structure with internal debris. Erythema has decreased in RLE and patient is currently on oral antibiotics. Episode of recurrent epistaxis this AM (on Lovenox) Selected Entries 06/25/16 06/26/16 21:00 06:00 Temperature 98.5 F Pulse Rate 77 Respiratory 18 Rate Blood Pressure 117/53 O2 Sat by Pulse 100 Oximetry (%) Oxygen Delivery Room Air Method Laboratory Tests 06/25/16 06/25/16 06:00 06:00 WBC 4.8 Hgb 10.8 Hct 31.8 L Plt Count 646 H Sodium 140 Potassium 4.8 Chloride 105 Carbon Dioxide 28 BUN 17 D Creatinine 0.8 Random Glucose 88 Calcium 8.4 L Phosphorus 3.2 Magnesium 2.3 Chest Clear Cor RRR Abd Soft non-tender Ext Faded erythema RLE with further overall improvement No edema Neuro No new focal deficits Assessment and Plan Septicemia B-hemolytic strep in initial blood cultures On oral Rx Cellulitis RLE Completed Rx with Zosyn and Clindamycin as per Dr Hurtado Currently oral Rx Anemia 10.7/31.5>>10.8/32.2>>10.8/31.8 Monitor Check platelet count 646K Thombocytosis Possible acute phase reaction Monitor AGUSTINA Currently inactive Device at home not working well Will look into getting a new mask Currently stable Fever Tmax 99 Right foot pain Patient feels she would be able to transfer OOB to [facility] and back on her own, but admits it would be a difficult struggle MRI reviewed as above Will ask for orthopedic assessment to help in further therapy and decisions. Long discussion with patient regarding having PT assessment in AM tomorrow and attempt discharge if felt to be capable to be on her own and to order VNS with home PT. Discuss possible role of NSAIDs and/or low dose Prednisone (5mg - 10mg) for treatment of possible tendonitis of foot vs role of steroid injection once seen by orthopedist, if deemed appropriate Epistaxis Controlled Continue current Rx Plan as above Will need ongoing PT for ambulation
--- NOTE | 2016-06-26 10:02 | CONSULT ---
Consult - text type - Consultation Consultation Note: FULL CONSULT DICTATED IMP: ACHILLES TENDONITIS AND EQUINUS CONTRACTURE PLAN: NSAIDS PRN, CUSTOM SHOES TO BE ARRANGED OUTPATIENT
[2016-06-26] MEDS: LACTOBACILLUS ACIDOPHILUS 1 EACH TAB (FP) PO SCH ×2 (10:18→22:04)
[2016-06-26] MEDS: RANITIDINE HCL 150 MG TABLET (FP) PO SCH ×2 (10:18→22:04)
[2016-06-26] MEDS: ENOXAPARIN NA (PORCINE) 40 MG/0.4 ML DISP.SYRIN SQ SCH (10:18)
[2016-06-26] MEDS: NYSTATIN 100000 UNIT/GM TOPICAL OINTMENT 15 GM TUBE TP SCH ×2 (10:18→22:05)
[2016-06-26] MEDS: POLYETHYLENE GLYCOL 3350 119 GM BTL PO SCH (10:42)
[2016-06-26] MEDS: DOCUSATE SODIUM 100 MG CAPSULE (FP) PO SCH ×2 (10:42→22:07)
--- NOTE | 2016-06-26 11:54 | CONS ---
DATE OF CONSULTATION: 06/26/2016 Patient is an 85-year-old female admitted to the hospital approximately 2 weeks ago with septicemia and cellulitis and had been placed on IV antibiotics, which patient is resolving well for. Patient now complaining of just some pain in the back of her right heel and orthopedic consultation was ordered. No recent fall or trauma. No diabetes, no smoking history. PHYSICAL EXAMINATION: Musculoskeletal: She does have some tenderness in the area of insertion of her Achilles. She has an equinus contracture and a cavus foot. Equinus contracture is at least 10 degrees. Has good plantarflexion, but lacks a significant amount of dorsiflexion. No erythema, no evidence of any infection around the foot. No tenderness in the foot, hindfoot, midfoot, or forefoot and was neurovascularly intact. X-rays and MRI and failed to show any fracture or dislocation; just some midfoot edema. IMPRESSION: Achilles tendonitis and an equinus contracture with cavus foot. Patient would benefit from custom-made shoes with a heel lift and an arch support. We can arrange for her to get that and mold this as an outpatient. Currently, there is not much we can do, except for some nonsteroidals and some physical therapy, weightbearing as tolerated. RADAMES WU M.D. [id number]
[2016-06-26] MEDS: ACETAMINOPHEN 325 MG TABLET (FP) PO PRN (12:36)
--- NOTE | 2016-06-26 14:29 | PN ---
Progress Note, Physician History of Present Illness: patient stable still the pain in the leg continues otherwise doing well - Current Medication List Current Medications: Active Medications Acetaminophen (Tylenol -) 650 mg PO Q4H PRN PRN Reason: FEVER OR PAIN Last Admin: 06/26/16 12:36 Dose: 650 mg Amoxicillin/Clavulanate Potassium (Augmentin - 500mg Tablet) 1 tab PO BID@0800, 1730 [facility] Last Admin: 06/26/16 08:30 Dose: 1 tab Docusate Sodium (Colace -) 100 mg PO BID [facility] Last Admin: 06/26/16 10:42 Dose: Not Given Enoxaparin Sodium (Lovenox -) 40 mg SQ DAILY [facility] Last Admin: 06/26/16 10:18 Dose: 40 mg Lactobacillus Acidophilus (Bacid -) 1 tab PO BID [facility] Last Admin: 06/26/16 10:18 Dose: 1 tab Non-Formulary Med ( Lumigan [Bimatoprost ] 0.01% Opth Isabelle) 1 each OU HS [facility] Last Admin: 06/25/16 21:45 Dose: 1 each Nystatin (Mycostatin Ointment -) 1 applic TP BID [facility] Last Admin: 06/26/16 10:18 Dose: 1 applic Ondansetron HCl (Zofran Injection) 4 mg IVPB Q6H PRN PRN Reason: NAUSEA Polyethylene Glycol (Miralax (For Daily Use) -) 17 gm PO DAILY [facility] Last Admin: 06/26/16 10:42 Dose: Not Given Ranitidine HCl (Zantac -) 150 mg PO BID [facility] Last Admin: 06/26/16 10:18 Dose: 150 mg - Objective Vital Signs: Vital Signs Temperature 98.2 F 06/26/16 10:00 Pulse Rate 85 06/26/16 10:00 Respiratory Rate 18 06/26/16 10:00 Blood Pressure 111/55 06/26/16 10:00 O2 Sat by Pulse Oximetry (%) 100 06/26/16 09:00 Constitutional: Yes: No Distress, Calm Cardiovascular: Yes: Regular Rate and Rhythm Respiratory: Yes: Regular, CTA Bilaterally Musculoskeletal: Yes: WNL Extremities: Yes: Other Neurological: Yes: Alert, Oriented Psychiatric: Yes: Alert Labs: CBC, BMP 06/25/16 06:00 06/25/16 06:00 INR, PTT INR 1.36 (0.82-1.09) H 06/11/16 17:12 - ....Imaging MRI: Report Reviewed, Image Reviewed Assessment/Plan Problem List - Problems (1) Sepsis Code(s): A41.9 - SEPSIS, UNSPECIFIED ORGANISM (2) Cellulitis of leg without foot, right Code(s): L03.115 - CELLULITIS OF RIGHT LOWER LIMB bacteremia gram positive onchomycosis plan continue current mgmt mri result and image seen ortho on case await for final plan from them
[2016-06-26] MEDS: LUMIGAN 0.01% OU SCH (22:08)
[2016-06-26] MEDS: OPTH OU SCH (22:08)
[2016-06-27] MEDS: AMOX TR/POT CLAV 500MG/125MG TABLETS (FP) PO SCH ×2 (08:40→17:52)
[2016-06-27] MEDS: ENOXAPARIN NA (PORCINE) 40 MG/0.4 ML DISP.SYRIN SQ SCH ×2 (10:26→10:30)
[2016-06-27] MEDS: POLYETHYLENE GLYCOL 3350 119 GM BTL PO SCH (10:27)
[2016-06-27] MEDS: DOCUSATE SODIUM 100 MG CAPSULE (FP) PO SCH ×2 (10:27→21:07)
[2016-06-27] MEDS: NYSTATIN 100000 UNIT/GM TOPICAL OINTMENT 15 GM TUBE TP SCH ×2 (10:27→21:07)
[2016-06-27] MEDS: LACTOBACILLUS ACIDOPHILUS 1 EACH TAB (FP) PO SCH ×2 (10:27→21:07)
[2016-06-27] MEDS: RANITIDINE HCL 150 MG TABLET (FP) PO SCH ×2 (10:27→21:07)
--- NOTE | 2016-06-27 11:31 | PN ---
Progress Note, Physician Chief Complaint: Ms Wells continues to have foot pain. No cp, sob, n/v. - Current Medication List Current Medications: Active Medications Acetaminophen (Tylenol -) 650 mg PO Q4H PRN PRN Reason: FEVER OR PAIN Last Admin: 06/26/16 12:36 Dose: 650 mg Amoxicillin/Clavulanate Potassium (Augmentin - 500mg Tablet) 1 tab PO BID@0800, 1730 [facility] Last Admin: 06/27/16 08:40 Dose: 1 tab Docusate Sodium (Colace -) 100 mg PO BID [facility] Last Admin: 06/27/16 10:27 Dose: 100 mg Enoxaparin Sodium (Lovenox -) 40 mg SQ DAILY [facility] Last Admin: 06/27/16 10:30 Dose: Not Given Lactobacillus Acidophilus (Bacid -) 1 tab PO BID [facility] Last Admin: 06/27/16 10:27 Dose: 1 tab Non-Formulary Med ( Lumigan [Bimatoprost ] 0.01% Opth Isabelle) 1 each OU HS [facility] Last Admin: 06/26/16 22:08 Dose: 1 each Nystatin (Mycostatin Ointment -) 1 applic TP BID [facility] Last Admin: 06/27/16 10:27 Dose: 1 applic Ondansetron HCl (Zofran Injection) 4 mg IVPB Q6H PRN PRN Reason: NAUSEA Polyethylene Glycol (Miralax (For Daily Use) -) 17 gm PO DAILY [facility] Last Admin: 06/27/16 10:27 Dose: Not Given Ranitidine HCl (Zantac -) 150 mg PO BID [facility] Last Admin: 06/27/16 10:27 Dose: 150 mg - Objective Vital Signs: Vital Signs Temperature 98.6 F 06/26/16 16:45 Pulse Rate 74 06/26/16 16:45 Respiratory Rate 20 06/26/16 16:45 Blood Pressure 107/63 06/26/16 16:45 O2 Sat by Pulse Oximetry (%) 100 06/26/16 21:00 Constitutional: Yes: Well Nourished, No Distress, Calm Cardiovascular: Yes: Regular Rate and Rhythm. No: Gallop, Murmur, Rub Respiratory: Yes: Regular, CTA Bilaterally. No: Rales, Rhonchi, Wheezes Gastrointestinal: Yes: Normal Bowel Sounds, Soft. No: Distention, Tenderness Extremities: Yes: WNL Edema: No Labs: CBC, BMP 06/25/16 06:00 06/25/16 06:00 INR, PTT INR 1.36 (0.82-1.09) H 06/11/16 17:12 Problem List - Problems (1) Sepsis Code(s): A41.9 - SEPSIS, UNSPECIFIED ORGANISM (2) Cellulitis of leg without foot, right Code(s): L03.115 - CELLULITIS OF RIGHT LOWER LIMB Assessment/Plan (1) Sepsis Assessment/Plan: -appreciate ID assistance -resolved Code(s): A41.9 - SEPSIS, UNSPECIFIED ORGANISM (2) Cellulitis of leg without foot, right Assessment/Plan: -erythema resolved -continue augmentin per ID Code(s): L03.115 - CELLULITIS OF RIGHT LOWER LIMB (3) GERD -zantac 150mg bid (4) Arthritis -MRI resulted -appreciate ortho assistance -patient not walking far, last time walked only 20 ft -PT to see today -patient would benefit from SNF placement
--- NOTE | 2016-06-27 14:00 | PN ---
Progress Note, Physician History of Present Illness: stable no issues pain in the leg continues - Current Medication List Current Medications: Active Medications Acetaminophen (Tylenol -) 650 mg PO Q4H PRN PRN Reason: FEVER OR PAIN Last Admin: 06/26/16 12:36 Dose: 650 mg Amoxicillin/Clavulanate Potassium (Augmentin - 500mg Tablet) 1 tab PO BID@0800, 1730 [facility] Last Admin: 06/27/16 08:40 Dose: 1 tab Docusate Sodium (Colace -) [address] [facility] Last Admin: 06/27/16 10:27 Dose: 100 mg Enoxaparin Sodium (Lovenox -) [address] [facility] Last Admin: 06/27/16 10:30 Dose: Not Given Lactobacillus Acidophilus (Bacid -) [address] [facility] Last Admin: 06/27/16 10:27 Dose: 1 tab Non-Formulary Med ( Lumigan [Bimatoprost ] 0.01% Opth Isabelle) [address] [facility] Last Admin: 06/26/16 22:08 Dose: 1 each Nystatin (Mycostatin Ointment -) [address] [facility] Last Admin: 06/27/16 10:27 Dose: 1 applic Ondansetron HCl (Zofran Injection) 4 mg IVPB Q6H PRN PRN Reason: NAUSEA Polyethylene Glycol (Miralax (For Daily Use) -) [address] [facility] Last Admin: 06/27/16 10:27 Dose: Not Given Ranitidine HCl (Zantac -) [address] [facility] Last Admin: 06/27/16 10:27 Dose: 150 mg - Objective Vital Signs: Vital Signs Temperature 98.6 F 06/26/16 16:45 Pulse Rate 74 06/26/16 16:45 Respiratory Rate 20 06/26/16 16:45 Blood Pressure 107/63 06/26/16 16:45 O2 Sat by Pulse Oximetry (%) 100 06/26/16 21:00 Constitutional: Yes: Calm, Mild Distress Cardiovascular: Yes: Regular Rate and Rhythm Respiratory: Yes: Regular, CTA Bilaterally Gastrointestinal: Yes: Normal Bowel Sounds, Soft Musculoskeletal: Yes: Other Extremities: Yes: Other Integumentary: Yes: Erythema (resolved) Neurological: Yes: Alert, Oriented Psychiatric: Yes: Alert Labs: CBC, BMP 06/25/16 06:00 06/25/16 06:00 INR, PTT INR 1.36 (0.82-1.09) H 06/11/16 17:12 Assessment/Plan Problem List - Problems (1) Sepsis Code(s): A41.9 - SEPSIS, UNSPECIFIED ORGANISM (2) Cellulitis of leg without foot, right Code(s): L03.115 - CELLULITIS OF RIGHT LOWER LIMB bacteremia gram positive onchomycosis plan continue current mgmt will stop abx tomorrow ct elevation of the leg ortho planing for a shoe
[2016-06-27] MEDS: LUMIGAN 0.01% OU SCH (21:07)
[2016-06-27] MEDS: OPTH OU SCH (21:07)
[2016-06-28] MEDS: AMOX TR/POT CLAV 500MG/125MG TABLETS (FP) PO SCH (09:36)
[2016-06-28] MEDS: LACTOBACILLUS ACIDOPHILUS 1 EACH TAB (FP) PO SCH ×2 (09:36→21:11)
[2016-06-28] MEDS: DOCUSATE SODIUM 100 MG CAPSULE (FP) PO SCH ×2 (09:36→21:11)
[2016-06-28] MEDS: RANITIDINE HCL 150 MG TABLET (FP) PO SCH ×2 (09:36→21:11)
[2016-06-28] MEDS: NYSTATIN 100000 UNIT/GM TOPICAL OINTMENT 15 GM TUBE TP SCH ×2 (09:37→21:11)
[2016-06-28] MEDS: ENOXAPARIN NA (PORCINE) 40 MG/0.4 ML DISP.SYRIN SQ SCH (09:37)
[2016-06-28] MEDS: POLYETHYLENE GLYCOL 3350 119 GM BTL PO SCH (09:37)
--- NOTE | 2016-06-28 12:35 | PN ---
Progress Note, Physician History of Present Illness: stable doing well leg pain still present says slightly better - Current Medication List Current Medications: Active Medications Acetaminophen (Tylenol -) 650 mg PO Q4H PRN PRN Reason: FEVER OR PAIN Last Admin: 06/26/16 12:36 Dose: 650 mg Docusate Sodium (Colace -) 100 mg PO BID [facility] Last Admin: 06/28/16 09:36 Dose: 100 mg Enoxaparin Sodium (Lovenox -) 40 mg SQ DAILY [facility] Last Admin: 06/28/16 09:37 Dose: Not Given Lactobacillus Acidophilus (Bacid -) 1 tab PO BID [facility] Last Admin: 06/28/16 09:36 Dose: 1 tab Non-Formulary Med ( Lumigan [Bimatoprost ] 0.01% Opth Isabelle) 1 each OU HS [facility] Last Admin: 06/27/16 21:07 Dose: 1 each Nystatin (Mycostatin Ointment -) 1 applic TP BID [facility] Last Admin: 06/28/16 09:37 Dose: 1 applic Ondansetron HCl (Zofran Injection) 4 mg IVPB Q6H PRN PRN Reason: NAUSEA Polyethylene Glycol (Miralax (For Daily Use) -) 17 gm PO DAILY [facility] Last Admin: 06/28/16 09:37 Dose: Not Given Ranitidine HCl (Zantac -) 150 mg PO BID [facility] Last Admin: 06/28/16 09:36 Dose: 150 mg - Objective Vital Signs: Vital Signs Temperature 98 F 06/27/16 22:00 Pulse Rate 70 06/27/16 22:00 Respiratory Rate 18 06/27/16 22:00 Blood Pressure 103/55 06/27/16 22:00 O2 Sat by Pulse Oximetry (%) 100 06/27/16 21:00 Constitutional: Yes: No Distress, Calm Cardiovascular: Yes: Regular Rate and Rhythm Respiratory: Yes: Regular, CTA Bilaterally Gastrointestinal: Yes: Normal Bowel Sounds, Soft Extremities: Yes: Erythema (resolved), Other Neurological: Yes: Alert, Oriented Psychiatric: Yes: Alert Labs: CBC, BMP 06/25/16 06:00 06/25/16 06:00 INR, PTT INR 1.36 (0.82-1.09) H 06/11/16 17:12 Assessment/Plan Problem List - Problems (1) Sepsis Code(s): A41.9 - SEPSIS, UNSPECIFIED ORGANISM (2) Cellulitis of leg without foot, right Code(s): L03.115 - CELLULITIS OF RIGHT LOWER LIMB bacteremia gram positive onchomycosis plan continue current mgmt stopped abx will see how patient does ct elevation of the leg ortho planing for a shoe
--- NOTE | 2016-06-28 14:07 | PN ---
Progress Note, Physician Chief Complaint: Ms Wells says foot pain is slightly improved, states she is getting "antsy". No cp, sob, n/v - Current Medication List Current Medications: Active Medications Acetaminophen (Tylenol -) 650 mg PO Q4H PRN PRN Reason: FEVER OR PAIN Last Admin: 06/26/16 12:36 Dose: 650 mg Docusate Sodium (Colace -) 100 mg PO BID [facility] Last Admin: 06/28/16 09:36 Dose: 100 mg Enoxaparin Sodium (Lovenox -) 40 mg SQ DAILY [facility] Last Admin: 06/28/16 09:37 Dose: Not Given Lactobacillus Acidophilus (Bacid -) 1 tab PO BID [facility] Last Admin: 06/28/16 09:36 Dose: 1 tab Non-Formulary Med ( Lumigan [Bimatoprost ] 0.01% Opth [facility]le) 1 each OU HS [facility] Last Admin: 06/27/16 21:07 Dose: 1 each Nystatin (Mycostatin Ointment -) 1 applic TP BID [facility] Last Admin: 06/28/16 09:37 Dose: 1 applic Ondansetron HCl (Zofran Injection) 4 mg IVPB Q6H PRN PRN Reason: NAUSEA Polyethylene Glycol (Miralax (For Daily Use) -) 17 gm PO DAILY [facility] Last Admin: 06/28/16 09:37 Dose: Not Given Ranitidine HCl (Zantac -) 150 mg PO BID [facility] Last Admin: 06/28/16 09:36 Dose: 150 mg - Objective Vital Signs: Vital Signs Temperature 98.4 F 06/28/16 09:00 Pulse Rate 87 06/28/16 09:00 Respiratory Rate 16 06/28/16 09:00 Blood Pressure 98/56 06/28/16 09:00 O2 Sat by Pulse Oximetry (%) 98 06/28/16 09:00 Constitutional: Yes: Well Nourished, No Distress, Calm Cardiovascular: Yes: Regular Rate and Rhythm. No: Gallop, Murmur, Rub Respiratory: Yes: Regular, CTA Bilaterally. No: Rales, Rhonchi, Wheezes Gastrointestinal: Yes: Normal Bowel Sounds, Soft. No: Distention, Tenderness Extremities: Yes: WNL Edema: No Labs: CBC, BMP 06/25/16 06:00 06/25/16 06:00 INR, PTT INR 1.36 (0.82-1.09) H 06/11/16 17:12 Problem List - Problems (1) Sepsis Code(s): A41.9 - SEPSIS, UNSPECIFIED ORGANISM (2) Cellulitis of leg without foot, right Code(s): L03.115 - CELLULITIS OF RIGHT LOWER LIMB Assessment/Plan (1) Sepsis Assessment/Plan: -appreciate ID assistance -resolved Code(s): A41.9 - SEPSIS, UNSPECIFIED ORGANISM (2) Cellulitis of leg without foot, right Assessment/Plan: -erythema resolved -full course antibiotics finished Code(s): L03.115 - CELLULITIS OF RIGHT LOWER LIMB (3) GERD -zantac 150mg bid (4) Arthritis -continue PT -awaiting placement
[2016-06-28] MEDS: LUMIGAN 0.01% OU SCH (21:11)
[2016-06-28] MEDS: OPTH OU SCH (21:11)
[2016-06-29] MEDS: ENOXAPARIN NA (PORCINE) 40 MG/0.4 ML DISP.SYRIN SQ SCH (10:40)
[2016-06-29] MEDS: POLYETHYLENE GLYCOL 3350 119 GM BTL PO SCH (10:40)
[2016-06-29] MEDS: DOCUSATE SODIUM 100 MG CAPSULE (FP) PO SCH ×2 (10:42→22:01)
[2016-06-29] MEDS: NYSTATIN 100000 UNIT/GM TOPICAL OINTMENT 15 GM TUBE TP SCH ×2 (10:43→22:01)
[2016-06-29] MEDS: LACTOBACILLUS ACIDOPHILUS 1 EACH TAB (FP) PO SCH ×2 (10:43→22:00)
[2016-06-29] MEDS: RANITIDINE HCL 150 MG TABLET (FP) PO SCH ×2 (10:44→22:00)
--- NOTE | 2016-06-29 11:29 | PN ---
Progress Note, Physician Chief Complaint: Ms Wells says foot pain is slightly improved, still feels "antsy". No cp, sob, n/v - Current Medication List Current Medications: Active Medications Acetaminophen (Tylenol -) 650 mg PO Q4H PRN PRN Reason: FEVER OR PAIN Last Admin: 06/26/16 12:36 Dose: 650 mg Docusate Sodium (Colace -) 100 mg PO BID [facility] Last Admin: 06/29/16 10:42 Dose: 100 mg Enoxaparin Sodium (Lovenox -) 40 mg SQ DAILY [facility] Last Admin: 06/29/16 10:40 Dose: Not Given Lactobacillus Acidophilus (Bacid -) 1 tab PO BID [facility] Last Admin: 06/29/16 10:43 Dose: 1 tab Non-Formulary Med ( Lumigan [Bimatoprost ] 0.01% Opth Isabelle) 1 each OU HS [facility] Last Admin: 06/28/16 21:11 Dose: 1 each Nystatin (Mycostatin Ointment -) 1 applic TP BID [facility] Last Admin: 06/29/16 10:43 Dose: 1 applic Ondansetron HCl (Zofran Injection) 4 mg IVPB Q6H PRN PRN Reason: NAUSEA Polyethylene Glycol (Miralax (For Daily Use) -) 17 gm PO DAILY [facility] Last Admin: 06/29/16 10:40 Dose: Not Given Ranitidine HCl (Zantac -) 150 mg PO BID [facility] Last Admin: 06/29/16 10:44 Dose: 150 mg - Objective Vital Signs: Vital Signs Temperature 99.5 F 06/29/16 06:00 Pulse Rate 77 06/29/16 06:00 Respiratory Rate 18 06/29/16 06:00 Blood Pressure 107/55 06/29/16 06:00 O2 Sat by Pulse Oximetry (%) 98 06/28/16 21:00 Constitutional: Yes: Well Nourished, No Distress, Calm Cardiovascular: Yes: Regular Rate and Rhythm. No: Gallop, Murmur, Rub Respiratory: Yes: Regular, CTA Bilaterally. No: Rales, Rhonchi, Wheezes Gastrointestinal: Yes: Normal Bowel Sounds, Soft. No: Distention, Tenderness Extremities: Yes: WNL Edema: No Labs: CBC, BMP 06/25/16 06:00 06/25/16 06:00 INR, PTT INR 1.36 (0.82-1.09) H 06/11/16 17:12 Problem List - Problems (1) Sepsis Code(s): A41.9 - SEPSIS, UNSPECIFIED ORGANISM (2) Cellulitis of leg without foot, right Code(s): L03.115 - CELLULITIS OF RIGHT LOWER LIMB Assessment/Plan (1) Sepsis Assessment/Plan: -appreciate ID assistance -resolved Code(s): A41.9 - SEPSIS, UNSPECIFIED ORGANISM (2) Cellulitis of leg without foot, right Assessment/Plan: -erythema resolved -full course antibiotics finished Code(s): L03.115 - CELLULITIS OF RIGHT LOWER LIMB (3) GERD -zantac 150mg bid (4) Arthritis -continue PT -awaiting placement
--- NOTE | 2016-06-29 15:12 | PN ---
Progress Note, Physician History of Present Illness: doing well leg still with pain but better - Current Medication List Current Medications: Active Medications Acetaminophen (Tylenol -) 650 mg PO Q4H PRN PRN Reason: FEVER OR PAIN Last Admin: 06/26/16 12:36 Dose: 650 mg Docusate Sodium (Colace -) 100 mg PO BID [facility] Last Admin: 06/29/16 10:42 Dose: 100 mg Enoxaparin Sodium (Lovenox -) 40 mg SQ DAILY [facility] Last Admin: 06/29/16 10:40 Dose: Not Given Lactobacillus Acidophilus (Bacid -) 1 tab PO BID [facility] Last Admin: 06/29/16 10:43 Dose: 1 tab Non-Formulary Med ( Lumigan [Bimatoprost ] 0.01% Opth Isabelle) 1 each OU HS [facility] Last Admin: 06/28/16 21:11 Dose: 1 each Nystatin (Mycostatin Ointment -) 1 applic TP BID [facility] Last Admin: 06/29/16 10:43 Dose: 1 applic Ondansetron HCl (Zofran Injection) 4 mg IVPB Q6H PRN PRN Reason: NAUSEA Polyethylene Glycol (Miralax (For Daily Use) -) 17 gm PO DAILY [facility] Last Admin: 06/29/16 10:40 Dose: Not Given Ranitidine HCl (Zantac -) 150 mg PO BID [facility] Last Admin: 06/29/16 10:44 Dose: 150 mg - Objective Vital Signs: Vital Signs Temperature 99.4 F 06/29/16 13:51 Pulse Rate 86 06/29/16 13:51 Respiratory Rate 16 06/29/16 13:51 Blood Pressure 106/56 06/29/16 13:51 O2 Sat by Pulse Oximetry (%) 95 06/29/16 09:00 Constitutional: Yes: No Distress, Calm Eyes: Yes: Conjunctiva Clear Cardiovascular: Yes: Regular Rate and Rhythm Respiratory: Yes: Regular, CTA Bilaterally Musculoskeletal: Yes: Other Extremities: Yes: Erythema (resolved) Neurological: Yes: Alert, Oriented Psychiatric: Yes: Alert Labs: CBC, BMP 06/25/16 06:00 06/25/16 06:00 INR, PTT INR 1.36 (0.82-1.09) H 06/11/16 17:12 Assessment/Plan Problem List - Problems (1) Sepsis Code(s): A41.9 - SEPSIS, UNSPECIFIED ORGANISM (2) Cellulitis of leg without foot, right Code(s): L03.115 - CELLULITIS OF RIGHT LOWER LIMB bacteremia gram positive onchomycosis plan stable off of abx continue elevation of the leg awaiting placement patient doing well
[2016-06-29] MEDS ORDERED: PT OWN MED DRAWER 7, Y5N ONE (21:29)
[2016-06-29] MEDS: LUMIGAN 0.01% OU SCH (22:01)
[2016-06-29] MEDS: OPTH OU SCH (22:01)
[2016-06-30 09:07] LABS: MCH 31.2 pg (25.7-33.7); MCHC 33.7 g/dl (32.0-36.0); MEAN CELL VOLUME 92.6 fl (80-96); MEAN PLT VOLUME 6.2 fl (7.5-11.1); PLATELET COUNT 463 K/MM3 (134-434); RDW 13.6 % (11.6-15.6); WHITE BLOOD COUNT 3.9 K/mm3 (4.0-10.0)
[2016-06-30 09:33] LABS: ALBUMIN 2.6 g/dl (3.4-5.0); ANION GAP 7 (8-16); BILIRUBIN,TOTAL 0.2 mg/dL (0.2-1.0); CALCIUM 8.5 mg/dL (8.5-10.1); CO2 30 mmol/L (21-32); CREATININE 0.7 mg/dL (0.55-1.02); GLUCOSE,RANDOM 102 mg/dL (74-106); SGOT/AST 19 U/L (15-37); SGPT/ALT 19 U/L (12-78); TOT PROT 6.8 g/dl (6.4-8.2)
[2016-06-30 09:35] LABS: ALK PHOS 68 U/L (45-117); TROPONIN I < 0.02 ng/ml (0.00-0.05)
[2016-06-30] MEDS: ENOXAPARIN NA (PORCINE) 40 MG/0.4 ML DISP.SYRIN SQ SCH (10:01)
[2016-06-30] MEDS: RANITIDINE HCL 150 MG TABLET (FP) PO SCH (10:34)
[2016-06-30] MEDS: LACTOBACILLUS ACIDOPHILUS 1 EACH TAB (FP) PO SCH (10:34)
[2016-06-30] MEDS: NYSTATIN 100000 UNIT/GM TOPICAL OINTMENT 15 GM TUBE TP SCH (10:34)
[2016-06-30] MEDS: DOCUSATE SODIUM 100 MG CAPSULE (FP) PO SCH (10:34)
[2016-06-30] MEDS: POLYETHYLENE GLYCOL 3350 119 GM BTL PO SCH (10:34)
--- NOTE | 2016-06-30 14:09 | EKG ---
Test Reason : Blood Pressure : / mmHG Vent. Rate : 071 BPM Atrial Rate : 071 BPM P-R Int : 174 ms QRS Dur : 084 ms QT Int : 388 ms P-R-T Axes : 047 -29 058 degrees QTc Int : 421 ms NORMAL SINUS RHYTHM NORMAL ECG WHEN COMPARED WITH ECG OF 11-JUN-2016 19:12, NO SIGNIFICANT CHANGE WAS FOUND Confirmed by ESTUARDO WEBSTER MD ([id number]) on 06/30/2016 2:08:46 PM Referred By: MICHAELA WOODY Confirmed By:ESTUARDO WEBSTER MD
--- NOTE | 2016-06-30 14:17 | PN ---
Progress Note, Physician History of Present Illness: no new events except leg pain - Current Medication List Current Medications: Active Medications Acetaminophen (Tylenol -) 650 mg PO Q4H PRN PRN Reason: FEVER OR PAIN Last Admin: 06/26/16 12:36 Dose: 650 mg Docusate Sodium (Colace -) 100 mg PO BID [facility] Last Admin: 06/30/16 10:34 Dose: 100 mg Enoxaparin Sodium (Lovenox -) 40 mg SQ DAILY [facility] Last Admin: 06/30/16 10:01 Dose: Not Given Lactobacillus Acidophilus (Bacid -) 1 tab PO BID [facility] Last Admin: 06/30/16 10:34 Dose: 1 tab Non-Formulary Med ( Lumigan [Bimatoprost ] 0.01% Op[facility]) 1 each OU HS [facility] Last Admin: 06/29/16 22:01 Dose: 1 each Nystatin (Mycostatin Ointment -) 1 applic TP BID [facility] Last Admin: 06/30/16 10:34 Dose: 1 applic Ondansetron HCl (Zofran Injection) 4 mg IVPB Q6H PRN PRN Reason: NAUSEA Polyethylene Glycol (Miralax (For Daily Use) -) 17 gm PO DAILY [facility] Last Admin: 06/30/16 10:34 Dose: Not Given Ranitidine HCl (Zantac -) 150 mg PO BID [facility] Last Admin: 06/30/16 10:34 Dose: 150 mg - Objective Vital Signs: Vital Signs Temperature 99.0 F 06/30/16 07:45 Pulse Rate 57 L 06/30/16 07:45 Respiratory Rate 20 06/30/16 09:00 Blood Pressure 124/57 06/30/16 07:45 O2 Sat by Pulse Oximetry (%) 96 06/30/16 09:00 Constitutional: Yes: No Distress, Calm Cardiovascular: Yes: Regular Rate and Rhythm Respiratory: Yes: Regular, CTA Bilaterally Gastrointestinal: Yes: Normal Bowel Sounds, Soft Musculoskeletal: Yes: Other Extremities: Yes: Other Integumentary: Yes: Other Neurological: Yes: Alert, Oriented Psychiatric: Yes: Alert Labs: CBC, BMP 06/30/16 08:55 06/30/16 08:55 INR, PTT INR 1.36 (0.82-1.09) H 06/11/16 17:12 Assessment/Plan Problem List - Problems (1) Sepsis Code(s): A41.9 - SEPSIS, UNSPECIFIED ORGANISM (2) Cellulitis of leg without foot, right Code(s): L03.115 - CELLULITIS OF RIGHT LOWER LIMB bacteremia gram positive onchomycosis plan continue current mgmt patient stable
[2016-06-30 14:24] VITALS: TEMP 98.4
[2016-06-30 15:52] VITALS: BP 111/59; PULSE 79
--- NOTE | 2016-06-30 16:55 | DS ---
Physical Examination Vital Signs: Vital Signs Temperature 98.4 F 06/30/16 14:22 Pulse Rate 75 06/30/16 15:30 Respiratory Rate 16 06/30/16 14:22 Blood Pressure 103/57 06/30/16 15:30 O2 Sat by Pulse Oximetry (%) 96 06/30/16 09:00 Constitutional: Yes: Well Nourished, No Distress, Calm Cardiovascular: Yes: Regular Rate and Rhythm. No: Gallop, Murmur, Rub Respiratory: Yes: Regular, CTA Bilaterally. No: Rales, Rhonchi, Wheezes Gastrointestinal: Yes: Normal Bowel Sounds, Soft. No: Distention, Tenderness Extremities: Yes: WNL Edema: No Labs: CBC, BMP 06/30/16 08:55 06/30/16 08:55 Discharge Summary Reason For Visit: CELLULITIS OF RIGHT LEG W/O FOOT Current Active Problems Cellulitis of leg without foot, right (Acute) Deviated nasal septum (Acute) Ear pain, left (Acute) Sepsis (Acute) Sleep apnea in adult (Acute) Hospital Course: (1) Sepsis Code(s): A41.9 - SEPSIS, UNSPECIFIED ORGANISM (2) Cellulitis of leg without foot, right Code(s): L03.115 - CELLULITIS OF RIGHT LOWER LIMB (3) GERD (4) Arthritis Ms Wells is a very pleasant 85 year old female who came in with sepsis secondary to cellulitis of her RLE. She was admitted to the hospital and started on IV antibiotics. Her cellulitis improved and she was able to finish the course of her antibiotics with augmentin. Cellulitis and sepsis resolved. She had severe foot pain that was worked up and showed tenosynovitis and arthritis. She is recommended to wear a boot that can be fitted as an outpatient. Currently she is stable for discharge to SNF 35 minutes spent in preparation of this discharge Condition: Stable - Instructions Diet, Activity, Other Instructions: regular diet. Up with assistance, further activity per PT at SNF. Dr. Vivar- need custom-made shoes with heel lift and arch support - arrange this as out patient. Referrals: Rose Hurtado MD [Staff Physician] - Teo Vivar MD [Staff Physician] - Teo Ernandez MD [Primary Care Provider] - Disposition: [facility] - Home Medications Comprehensive Discharge Medication List: Ambulatory Orders Bimatoprost [Lumigan] 1 drop OU HS 06/11/16 Ranitidine [Zantac -] 150 mg PO BID tablet 06/29/16
== END 2016-06-30 16:57 | DRG 872 ==
LOC: JER 16:02 → JERBED 20:20 → J8W 23:51
PROVIDERS: ADMIT Internal Medicine; ATTEND Internal Medicine
DX: A41.9 Sepsis, unspecified organism (principal); L03.115 Cellulitis of right lower limb; K21.9 Gastro-esophageal reflux disease without esophagitis; M19.90 Unspecified osteoarthritis, unspecified site; M76.60 Achilles tendinitis, unspecified leg; D64.9 Anemia, unspecified; D47.3 Essential (hemorrhagic) thrombocythemia; L53.9 Erythematous condition, unspecified; H92.02 Otalgia, left ear; G47.33 Obstructive sleep apnea (adult) (pediatric); J34.2 Deviated nasal septum; R04.0 Epistaxis
CPT/HCPCS: 36415; 70450-TC; 71010-TC; 73590-TC-RT; 73721-RT-TC; 80048; 80053; 81003; 81015; 82550; 82553; 82803; 83605; 83735; 84100; 84484; 85025; 85027; 85610; 85651; 85730; 86140; 86850; 86900; 86901; 87040; 87077; 87086; 87186; 87254; 87324; 87449; 87804; 93005; 93010; 93306-TC; 93971-TC; 97116-GP; 99283-25